=== PATIENT | male | born 1990 | race Caucasian/White ===

== ENCOUNTER 2018-05-10 19:21 | Emergency (ER) | payer SELFPAY ==
[2018-05-10 19:21] VITALS: BP 146/95; PULSE 111; RESP 18; TEMP 36.5; O2SAT 98; BMI 25.0
--- NOTE | 2018-05-10 19:59 | ED.VISSUMM ---
- ER Visit Summary Date of Service: 05/10/18 Chief Complaint: Anxiety and syncopal event History of Present Illness: The patient is a 27 M states is a history of PTSD, anxiety, depression and hep C. Patient was recently discharged from residential on 1019 due to a parole violation. States today he was in a heated argument ex girlfriend and he had a syncopal event. States he fell back and hit a table. Denies any headache. Denies any numbness to his arms or legs. Complaining of upper back discomfort. No chest or abdominal pain. He said syncopal events before. He denies any nausea, vomiting, diarrhea or fever. No melena. Physical Examination: Well-appearing young male. Vital signs stable afebrile. No distress. He is anxious. HEENT exam pupils round reactive light. No dental injury. No signs of trauma to his face or scalp. No hematomas or lacerations. C-spine normal range of motion. Nontender. Trachea nontender. Lungs clear to auscultation bilaterally. Heart regular rhythm rate about 100 no murmur. Chest nontender. Abdomen soft nontender. Normal bowel sounds no peritoneal signs. No signs of trauma. Pelvic girdle intact. Patient is moving all 4 extremities. They are neurovascularly intact. Equal symmetrical 5 out of 5 mat roller strength. Dorsi plantar flexion intact. Full range of motion both upper and lower extremities. Back is para thoracic soft tissue tenderness. No ecchymosis or bruising. No bony deformities. No significant bony tenderness. Neurologically is awake is alert. There are no focal motor or sensory deficits. GCS of 15. NIH is 0. Test Results: None Emergency Department Course and Treatment: Patient requested something for his anxiety I will give him a prescription for Ativan 1 mg #5 no refill. Given the primary care physician to follow-up with. Treatment Plan: Ice to his back contusions. Tylenol Motrin for pain. Disposition: Discharge Impression: Acute on chronic anxiety Acute syncopal event with history of the same Back contusion from fall This note was generated with [employer] dictation software. It may contain incorrect words, spelling, and punctuation that were not noted in review of the chart prior to signing ED Disposition - Plan for ED Patient: Chief Complaint: Fall Referrals: NOT,DEFINED [Primary Care Provider] -
--- NOTE | 2018-05-10 20:02 | ED.DCSUM_ITS ---
- ER Visit Summary Date of Service: 05/10/18 Chief Complaint: Anxiety and syncopal event History of Present Illness: The patient is a 27 M states is a history of PTSD, anxiety, depression and hep C. Patient was recently discharged from long-term on 1019 due to a parole violation. States today he was in a heated argument ex girlfriend and he had a syncopal event. States he fell back and hit a table. Denies any headache. Denies any numbness to his arms or legs. Complaining of upper back discomfort. No chest or abdominal pain. He said syncopal events before. He denies any nausea, vomiting, diarrhea or fever. No melena. Physical Examination: Well-appearing young male. Vital signs stable afebrile. No distress. He is anxious. HEENT exam pupils round reactive light. No dental injury. No signs of trauma to his face or scalp. No hematomas or lacerations. C-spine normal range of motion. Nontender. Trachea nontender. Lungs clear to auscultation bilaterally. Heart regular rhythm rate about 100 no murmur. Chest nontender. Abdomen soft nontender. Normal bowel sounds no peritoneal signs. No signs of trauma. Pelvic girdle intact. Patient is moving all 4 extremities. They are neurovascularly intact. Equal symmetrical 5 out of 5 guard lieutenant strength. Dorsi plantar flexion intact. Full range of motion both upper and lower extremities. Back is para thoracic soft tissue tenderness. No ecchymosis or bruising. No bony deformities. No significant bony tenderness. Neurologically is awake is alert. There are no focal motor or sensory deficits. GCS of 15. NIH is 0. Test Results: None Emergency Department Course and Treatment: Patient requested something for his anxiety I will give him a prescription for Ativan 1 mg #5 no refill. Given the primary care physician to follow-up with. Treatment Plan: Ice to his back contusions. Tylenol Motrin for pain. Disposition: Discharge Impression: Acute on chronic anxiety Acute syncopal event with history of the same Back contusion from fall This note was generated with [employer] dictation software. It may contain incorrect words, spelling, and punctuation that were not noted in review of the chart prior to signing ED Disposition - Plan for ED Patient: Chief Complaint: Fall Referrals: NOT,DEFINED [Primary Care Provider] -
--- NOTE | 2018-05-10 20:02 | ED.DEP ---
ED Disposition - Plan for ED Patient: Chief Complaint: Fall Instructions: ED Contusion Back, ED Panic Attack Prescriptions: Lorazepam [Ativan] 1 mg PO DAILY PRN PRN #5 tab PRN Reason: Anxiety Referrals: Counseling,Center [GROUP OF PHYSICIANS] - As soon as possible Maxwell Fields MD [STAFF PHYSICIAN] - As soon as possible Additional Instructions: Ice all sore areas. Tylenol Motrin for. Ativan as needed for anxiety. Also follow-up with a counseling center for your anxiety.
[2018-05-10 20:10] VITALS: BP 128/96; PULSE 109; RESP 17; O2SAT 94
== END 2018-05-10 20:11 | disposition home or self-care (01) ==
LOC: ED 20:09
PROVIDERS: Emergency Provider Emergency Medicine
DX: F41.9 Anxiety disorder, unspecified (principal); R55 Syncope and collapse; S20.229A Contusion of unspecified back wall of thorax, initial encounter; W19.XXXA Unspecified fall, initial encounter; Y93.89 Activity, other specified; F32.9 Major depressive disorder, single episode, unspecified; F43.10 Post-traumatic stress disorder, unspecified; B19.20 Unspecified viral hepatitis C without hepatic coma; F11.90 Opioid use, unspecified, uncomplicated; F15.90 Other stimulant use, unspecified, uncomplicated; Z72.0 Tobacco use
CPT/HCPCS: 99282

== ENCOUNTER 2018-05-16 22:20 | Emergency (ER) | payer SELFPAY ==
[2018-05-16 22:21] VITALS: BP 145/80; PULSE 104; RESP 18; TEMP 36.6; O2SAT 96; BMI 25.7
--- NOTE | 2018-05-16 22:42 | ED.VISSUMM ---
- ER Visit Summary Date of Service: 05/16/18 Chief Complaint: Suicide attempt History of Present Illness: The patient is a 27 M reports standing on a chair tonight and was in the process of tying a knot in a rope to hang himself and his cousin walked and stopped him. He admits to using meth the past couple of days. He has not been sleeping or eating well the past couple days. He does admit to prior suicide attempts and was last hospitalized last year. Patient was seen here a week ago after a fall and was given 5 tabs of Ativan as a prescription. He states his last dose was 3 or 4 days ago. He denies any other drug use other than meth. Physical Examination: Blood pressure is 145/80, temperature 97.9, heart rate 104, respiratory rate 18, pulse ox 96% on room air. Patient is sitting upright in bed. He is alert and talkative. Head neck examination reveals no external sign of trauma. There are no ligature rubi on his neck. Heart is regular rate and rhythm. Lung sounds clear. Abdomen is soft nontender. Active bowel sounds noted throughout. Neuro exam is normal. Psychiatric evaluation does reveal poor eye contact with poor judgment. He does admit to suicidal thoughts with plan. Test Results: CBC is unremarkable. Chemistry studies are significant only for potassium 3.1. LFTs normal. Tox screen is positive for amphetamines, methamphetamines, cannabinoids. EtOH is negative. Emergency Department Course and Treatment: Patient was given 40 mEq of potassium chloride orally. Patient was seen by Fernando Hendricks from the counseling center. Information was faxed to [facility] and we were notified that patient was declined secondary to insurance reasons. Treatment Plan: [] Disposition: Anticipated transfer Impression: Suicide gesture This note was generated with [employer] dictation software. It may contain incorrect words, spelling, and punctuation that were not noted in review of the chart prior to signing ED Disposition - Plan for ED Patient: Chief Complaint: Suicidal Referrals: Care Physician,No Primary [Primary Care Provider] -
[2018-05-16 23:02] LABS: Absolute Lymphocyte Count 2.63 X10^3/ul (0.83-4.51); Absolute Neutrophil Count 3.4 X10^3/uL (2.0-7.7); Basophil# 0.04 X10^3/uL; Basophil% 0.6 % (0-1); Eosinophil# 0.11 X10^3/uL; Eosinophils% 1.6 % (0-5); Hematocrit 41.9 % (40-54); Hemoglobin 14.5 g/dl (13.0-16.5); Lymphocyte # 2.63 X10^3/ul (4.0); Lymphocyte % 38.6 % (19-41); Mean Corp Hgb Conc 34.6 g/gl (32-36); Mean Corpuscular Volume 89.5 fL (80-94); Monocyte% 8.8 % (0-10); Neutrophil # 3.42 X10^3/uL (2.7-7.7); Neutrophil % 50.1 % (47-70); Platelet Count 241 K/mm3 (150-450); RBC Distribution Width CV 12.5 % (11.6-14.6); RBC Distribution Width SD 40.6 fl (35.1-43.9); Red Blood Count 4.68 M/mm3 (4.6-6.2); White Blood Count 6.8 K/mm3 (4.4-11.0)
[2018-05-16 23:04] LABS: Differential Indicated SCAN CRITERIA MET; POSITIVE COUNT NO; POSITIVE DIFFERENTIAL NO; POSITIVE MORPHOLOGY YES
[2018-05-16 23:09] LABS: BUN 17 mg/dL (7-18); Creatinine, Serum 0.99 mg/dL (0.70-1.30); Glucose 96 mg/dL (74-106)
[2018-05-16 23:10] LABS: AST(SGOT) 26 U/L (15-37); Alanine Aminotransfer ALT/SGPT 47 U/L (16-61); Albumin, Serum 4.1 g/dL (3.2-5.0); Alkaline Phosphatase 71 U/L (45-117); Anion Gap 7 (5-15); BUN/Creat Ratio 17.2 RATIO (10-20); Bilirubin, Direct 0.15 mg/dL (0.00-0.30); Calcium,Total 9.1 mg/dL (8.5-10.1); Chloride 103 mmol/L (98-107); EST Glomerular Filtration Rate 96 mL/min (>60); Est Glom Filt Rate - Afr Amer 116 mL/min (>60); Estimated Creatinine Clearance 125.54 ml/min; Globulin 3.7 g/dL (2.2-4.2); Potassium 3.1 mmol/L (3.5-5.1); Protein, Total 7.8 g/dL (6.4-8.2); Sodium Level 138 mmol/L (136-145)
[2018-05-16 23:20] LABS: Alcohol, Blood (Medical)-Serum < 3.0 mg/dL
[2018-05-16 23:21] LABS: Differential Comment SCANNED
[2018-05-16 23:24] VITALS: RESP 14
[2018-05-17] VITALS (10 sets, daily range): BP systolic 112–121; BP diastolic 70–71; PULSE 72–86; RESP 12–16; O2SAT 96–100
--- NOTE | 2018-05-17 00:48 | ED.RN ---
PATIENT ADVISED WAITING FOR URINE SAMPLE
[2018-05-17 01:57] LABS: Amphetamine Urine VISTA POSITIVE (<1000 ng/mL); Barbiturate Urine VISTA NEGATIVE (< 200 ng/mL); Benzodiazepine Urine VISTA NEGATIVE (< 200 ng/mL); Cocaine Urine VISTA NEGATIVE (< 300 ng/mL); Ecstacy Urine VISTA POSITIVE (< 500 ng/mL); Methadone Urine VISTA NEGATIVE (< 300 ng/mL); PCP Urine VISTA NEGATIVE (< 25 ng/mL); THC Urine VISTA POSITIVE (< 50 ng/mL); Vista UDS pH Range 5
--- NOTE | 2018-05-17 03:00 | ED.RN ---
Patient pending acceptance at [facility] at this time
--- NOTE | 2018-05-17 06:45 | ED.RN ---
april with crisis called and [facility] has denied patient at this time. April will have to find placement for patient at another facility at shift change
--- NOTE | 2018-05-17 07:34 | ED.RN ---
BREAKFAST TRAY DELIVERED TO PT. PT DENIES FURTHER NEEDS AT THIS TIME. AWAITING PLACEMENT TO ACCEPTED FACILITY. SITTER PRESENT AT BEDSIDE.
--- NOTE | 2018-05-17 09:56 | NURSING ---
FAXED EKG TO [facility].
--- NOTE | 2018-05-17 10:05 | EKG12_ITS ---
Test Reason : MK Blood Pressure : / mmHG Vent. Rate : 079 BPM Atrial Rate : 079 BPM P-R Int : 142 ms QRS Dur : 100 ms QT Int : 394 ms P-R-T Axes : 022 -08 067 degrees QTc Int : 451 ms Normal sinus rhythm Normal ECG Confirmed by LUIS TAYLOR MD ([id number]), graphics editor CHICHO ABRAHAM ([id number]) on 05/25/2018 1:14:17 PM Referred By: STEWART HERNANDES Confirmed By:LUIS TAYLOR MD
--- NOTE | 2018-05-17 11:53 | NURSING ---
CALLED COUNSELING CENTER, TALKED TO GURINDER. THEY HAVE FAXED INFO TO [facility] AND WAITING ON ACCEPTANCE.
--- NOTE | 2018-05-17 12:36 | ED.RN ---
[facility] CALLED WITH ACCEPTING DR AND BED. TRANSFERRED TO UNIT FOR NURSE REPORT. NURSE REPORT GIVEN BY THIS RN TO ABRAHAM FREEMAN. DENIES QUESTIONS. [employer] TO SET UP TRANSPORT.
== END 2018-05-17 15:00 ==
PROVIDERS: Emergency Provider Emergency Medicine
DX: T14.91XA Suicide attempt, initial encounter (principal); X83.8XXA Intentional self-harm by other specified means, initial encounter; Y93.89 Activity, other specified; F15.90 Other stimulant use, unspecified, uncomplicated; F12.90 Cannabis use, unspecified, uncomplicated; F41.9 Anxiety disorder, unspecified; B19.20 Unspecified viral hepatitis C without hepatic coma; Z91.5 Personal history of self-harm; Z72.0 Tobacco use
CPT/HCPCS: 36415; 80048; 80076; 80307; 80320; 85025; 93005; 99285; G0480

== ENCOUNTER → 2019-06-21 08:01 | Outpatient (CLI) | payer MEDICAID, SELFPAY ==
[2019-05-19 09:49] VITALS: BMI 26.9
[2019-06-21 12:40] LABS: Hematocrit 43.4 % (40-54); Hemoglobin 14.1 g/dL (13.0-16.5); Mean Corp Hgb Conc 32.5 g/dL (32-36); Mean Corpuscular Hgb 29.3 pg (27.0-32.0); Mean Platelet Vol. 10.2 fl (6.2-12.0); Platelet Count 209 K/mm3 (150-450); RBC Distribution Width CV 11.8 % (11.6-14.6); RBC Distribution Width SD 38.7 fl (35.1-43.9); Red Blood Count 4.82 M/mm3 (4.6-6.2); White Blood Count 4.1 K/mm3 (4.4-11.0)
[2019-06-21 13:15] LABS: ALB/GLOB Ratio 1.1 RATIO (0.9-2.4); AST(SGOT) 27 U/L (15-37); Alanine Aminotransfer ALT/SGPT 39 U/L (16-61); Albumin, Serum 3.9 g/dL (3.2-5.0); Alkaline Phosphatase 76 U/L (45-117); Anion Gap 7 (5-15); BUN 15 mg/dL (7-18); BUN/Creat Ratio 17.3 RATIO (10-20); Chloride 108 mmol/L (98-107); Cholesterol 163 mg/dL (200); Creatinine, Serum 0.87 mg/dL (0.70-1.30); EST Glomerular Filtration Rate 110 mL/min (>60); Est Glom Filt Rate - Afr Amer 133 mL/min (>60); Globulin 3.4 g/dL (2.2-4.2); Glucose 80 mg/dL (74-106); High Density Lipoprotein 30 mg/dL; Protein, Total 7.3 g/dL (6.4-8.2); Sodium Level 141 mmol/L (136-145); Thyroid Stim Hormone (TSH) 3.58 uIU/mL (0.358-3.74); Triglycerides 127 mg/dL; Very Low Density Lipoprotein 25 mg/dL (5-40)
[2019-06-23 15:38] LABS: Hepatitis Be Ab Negative (Negative)
== END ==
PROVIDERS: PCP Internal Medicine; Visit Provider Nurse Practitioner Family
DX: B19.20 Unspecified viral hepatitis C without hepatic coma (principal); F10.10 Alcohol abuse, uncomplicated; F19.10 Other psychoactive substance abuse, uncomplicated
CPT/HCPCS: 36415; 80053; 80061; 84443; 85027; 86707

== ENCOUNTER 2020-01-26 15:09 | Emergency (ER) | payer OTHER, SELFPAY ==
[2019-06-21 08:16] VITALS: BMI 26.9
[2020-01-26 15:11] VITALS: BP 118/69; PULSE 94; RESP 18; TEMP 36.2; O2SAT 97; BMI 22.4
[2020-01-26 15:15] VITALS: BP 118/69; PULSE 94; RESP 16; TEMP 36.2; O2SAT 97
[2020-01-26 15:49] LABS: Squamous Epithelial Cells - UA 0 SEEN /hpf (0-5)
--- NOTE | 2020-01-26 15:50 | ED.VIS.GEN ---
History of Present Illness Chief Complaint: Cellulitis Informant: Patient Narrative: Patient is a 29-year-old previous healthy male who presents to the emergency department for left hand palm swelling, pain and erythema. He states that he had a cut on it 2 days prior. Just today is became very painful. He has not tried taking thing for it. He did have a scab that he picked off over top of it. He did have a clear discharge. He denies any IV drug abuse but has had previous substance abuse. States that it has been over 9-month since he last used anything. He does smoke cigarettes. Moving the hand makes his symptoms worse. No streaking up the arm. He denies any fevers or chills. No nausea or vomiting. Denies any chest pain or shortness of breath. Patient also concerned about STD. He does have a history of gonorrhea in the past. He had a new sexual partner a few weeks ago. Yesterday started to have burning with urination. Denies any discharge. No external lesions. Past Medical History - Allergies and Home Meds Allergies/Adverse Reactions: Allergies ibuprofen Allergy (Verified 01/26/20 15:11) Hives orphenadrine citrate [From Norflex] Allergy (Verified 01/26/20 15:11) Hives Primary Care Physician: Ian Sanchez NP-C [Primary Care Provider] - Prior records reviewed: Yes Past Medical History: None Surgical History: tonsillectomy, - Smoking Status: Current every day smoker Alcohol: None Drugs: - - Former drug abuser - Family History Maternal Family History: Family History (Last Reviewed 05/19/19 @ 09:48 by Marium Paul) Unknown Alcoholism Suicide attempt Anxiety Arthritis Breast cancer Cancer Depression Myocardial infarction Kidney disease Seizures Family History: Reports: No pertinent history Paternal Family History: Family History (Last Reviewed 05/19/19 @ 09:48 by Marium Paul) Unknown Alcoholism Suicide attempt Anxiety Arthritis Breast cancer Cancer Depression Myocardial infarction Kidney disease Seizures Family History: Reports: No pertinent history Review of Systems All systems negative except as indicated General: Denies: Chills, Fever, Sweats Eyes: Denies: Visual changes - bilaterally, Diplopia ENT: Denies: Rhinorrhea, Sore throat Cardiovascular: Denies: Chest pain, Palpitations Respiratory: Denies: Dyspnea, Cough, Dyspnea on exertion Gastrointestinal: Denies: Abdominal pain, Nausea, Vomiting, Diarrhea Genitourinary: Reports: Dysuria. Denies: Hematuria, Frequency Musculoskeletal: Denies: Back pain, Extremity Pain Skin: Reports: - - Erythema and swelling over left palm around thenar eminence. Denies: Rash, Wounds Neurological: Denies: Headache, Weakness, Numbness Physical Exam Vital Signs/Narrative: Vital Signs Temp Pulse Resp BP Pulse Ox 01/26/20 15:15 97.1 F L 94 16 118/69 97 01/26/20 15:11 97.1 F L 94 18 118/69 97 Inital Vital Signs reviewed: Yes General: Well nourished, Well developed, No Acute Distress Head: Normocephalic, Atraumatic Eyes: Perrl, EOMI ENT: Moist mucous membranes, No rhinorrhea Neck: Supple, Nontender Cardiovascular: Regular rate, Regular rhythm, No murmurs Respiratory: No distress, CTA bilaterally, Chest nontender Abdomen: Soft, Nontender, Nondistended Rectal: Deferred : - - Deferred Back: Nontender, Normal Inspection Extremities: Nontender, No edema Skin: No rash, - - Left thenar eminence has swelling, warmth and tenderness. No fluctuating abscess present. There is a small open area with no drainage. No streaking up the arm. Good active range of motion of digits and wrist. 2+ radial pulse. Neurological: Alert, Oriented x3, Cranial nerves II-XII grossly intact, Normal Strength, Normal Sensation Psychological: Normal affect, Normal Mood Diagnostic/Tx/Re-eval - Medical Decision Making Patient presents the emerge department for what appears to be cellulitis of the left thenar eminence. Will cover with antibiotics. He is also concerned about STD and gonorrhea/chlamydia test being obtained. Will treat symptomatically with azithromycin and Rocephin. Given the location of his cellulitis I do recommend he has very close follow-up with his PCP. He is to call on Wednesday morning for an appointment. He otherwise has no systemic symptoms. If he develops any fever/chills or streaking up the arm despite being on antibiotic he is to return to the emerge department immediately. He understands and is agreeable with this plan. Patient does not know of any history of MRSA but states he has had abscesses before in the past. We will also cover with Bactrim given his history with Keflex. ED Disposition - Plan for ED Patient: Disposition: Home or Assisted Living Diagnosis: Cellulitis of hand, Dysuria Instructions: Cellulitis, If You Think You Have an STD Prescriptions: Sulfamethoxazole/Trimethoprim [Bactrim Ds Tablet] 2 each PO BID 7 Days #28 tablet Cephalexin [Keflex] 500 mg PO TID 7 Days #21 capsule Referrals: Ian Sanchez, EMILY-C [Primary Care Provider] - 2 Days for wound check
[2020-01-26 15:59] LABS: Color, Urine Yellow (Yellow); Glucose, Dipstick Normal (Normal); Ketone-Dipstick 5 mg/dl (Negative); Leukocyte Esterase-Dipstick Negative /ul (Negative); Nitrite-Dipstick Negative (Negative); Occult Blood-Urine Negative /ul (Negative); Protein-Dipstick 30 mg/dl (Negative); Specific Gravity, Urine 1.025 (1.002-1.030); Urine Bilirubin Dipstick Negative (Negative); Urine Clarity Sl. Cloudy (Clear); Urine Urobilinogen 4 mg/dl (Normal)
[2020-01-26] MEDS: Ceftriaxone 500 MG Vial 250 MG IM (16:13)
[2020-01-26] MEDS: Azithromycin 250 MG Tablet 1000 MG PO (16:13)
[2020-01-26 16:26] LABS: Bacteria 1+ /hpf (None Seen); Mucous, Urine 3+ /hpf (<or=2+); Red Blood Cells-Urine 0-5 SEEN /hpf (0-5); White Blood Cells 5-10 SEEN /hpf (0-5)
[2020-01-26 17:29] LABS: Chlamydia Trachomatis by PCR Negative (Negative); Neisserai gonorrhoeae by PCR Negative (Negative); Probe Check PASS; Sample Adequacy Control PASS; Specimen Processing Control PASS
== END 2020-01-26 16:36 | disposition home or self-care (01) ==
PROVIDERS: Emergency Provider Emergency Medicine; PCP Nurse Practitioner Family
DX: L03.114 Cellulitis of left upper limb (principal); R30.0 Dysuria; F17.210 Nicotine dependence, cigarettes, uncomplicated
CPT/HCPCS: 81001; 87491; 87591; 96372; 99281

== ENCOUNTER 2020-01-29 19:52 | Emergency (ER) | payer OTHER, SELFPAY ==
[2020-01-29 19:54] VITALS: BP 123/85; PULSE 92; RESP 16; TEMP 36.9; O2SAT 100; BMI 20.8
[2020-01-29 20:02] VITALS: BP 124/84; PULSE 87; RESP 16; TEMP 36.9; O2SAT 99
--- NOTE | 2020-01-29 20:36 | ED.VIS.GEN ---
History of Present Illness Chief Complaint: General Illness Informant: Patient Onset: Today Narrative: 29-year-old male with history of drug abuse presents with concern that his head is hurting and he feels confused. He has nausea but not vomiting. He states he has not done any drugs today. Denies fever. He does also state that he has a history of migraines but they are not formally diagnosed but he does have to come to the hospital and have these treated sometimes. Past Medical History - Allergies and Home Meds Allergies/Adverse Reactions: Allergies ibuprofen Allergy (Verified 01/29/20 19:56) Hives orphenadrine citrate [From Norflex] Allergy (Verified 01/29/20 19:56) Hives Primary Care Physician: Ian Sanchez NP-C [Primary Care Provider] - Prior records reviewed: Yes Surgical History: tonsillectomy, - Smoking Status: Current every day smoker - Family History Maternal Family History: Family History (Last Reviewed 05/19/19 @ 09:48 by Marium Paul) Unknown Alcoholism Suicide attempt Anxiety Arthritis Breast cancer Cancer Depression Myocardial infarction Kidney disease Seizures Family History: Reports: No pertinent history Paternal Family History: Family History (Last Reviewed 05/19/19 @ 09:48 by Marium Paul) Unknown Alcoholism Suicide attempt Anxiety Arthritis Breast cancer Cancer Depression Myocardial infarction Kidney disease Seizures Family History: Reports: No pertinent history Review of Systems General: Denies: Chills, Fever Eyes: Denies: Visual changes - bilaterally, Diplopia ENT: Denies: Rhinorrhea, Sore throat Cardiovascular: Denies: Chest pain, Palpitations Respiratory: Denies: Dyspnea, Cough, Dyspnea on exertion Gastrointestinal: Reports: Nausea, Vomiting Genitourinary: Reports: Dysuria Musculoskeletal: Denies: Myalgias Skin: Denies: Rash Neurological: Reports: Headache Psych: Denies: Depression, Anxiety Physical Exam Vital Signs/Narrative: Vital Signs Temp Pulse Resp BP Pulse Ox 01/29/20 20:02 98.5 F 87 16 124/84 H 99 01/29/20 19:54 98.5 F 92 16 123/85 H 100 Inital Vital Signs reviewed: Yes General: Well nourished, Well developed, No Acute Distress Head: Normocephalic, Atraumatic Eyes: Perrl, EOMI ENT: Moist mucous membranes Neck: Supple Cardiovascular: Regular rate, Regular rhythm Respiratory: No distress, CTA bilaterally Skin: Normal color, No rash Neurological: Alert, Oriented x3, Cranial nerves II-XII grossly intact Psychological: Normal affect Diagnostic/Tx/Re-eval - Medical Decision Making Laboratory Data 01/29/20 01/29/20 01/29/20 21:05 21:05 21:05 Urine Color Yellow Urine Clarity Cloudy Urine pH 6.5 Ur Specific Sayre 1.015 Urine Protein Negative Urine Glucose (UA) Normal Urine Ketones Negative Urine Occult Blood 10 H Urine Nitrite Negative Urine Bilirubin Negative Urine Urobilinogen 1 H Ur Leukocyte Esterase 25 H Urine RBC 0-5 SEEN Urine WBC 5-10 SEEN Ur Squamous Epith Cells 0 SEEN Amorphous Sediment 1+ Urine Bacteria RARE Urine Mucus 0 SEEN Urine Opiates Screen NEGATIVE Urine Methadone Screen NEGATIVE Ur Barbiturates Screen NEGATIVE Ur Phencyclidine Scrn NEGATIVE Ur Amphetamines Screen POSITIVE H U Methamphetamin-MDMA POSITIVE H U Benzodiazepines Scrn NEGATIVE Urine Cocaine Screen NEGATIVE U Cannabinoids Screen POSITIVE H Ur Drug Screen Comment Chlam trachomat DNA PCR Cancelled N.gonorrhoeae DNA (PCR) Cancelled 01/29/20 21:05 Urine Color Urine Clarity Urine pH Ur Specific Sayre Urine Protein Urine Glucose (UA) Urine Ketones Urine Occult Blood Urine Nitrite Urine Bilirubin Urine Urobilinogen Ur Leukocyte Esterase Urine RBC Urine WBC Ur Squamous Epith Cells Amorphous Sediment Urine Bacteria Urine Mucus Urine Opiates Screen Urine Methadone Screen Ur Barbiturates Screen Ur Phencyclidine Scrn Ur Amphetamines Screen U Methamphetamin-MDMA U Benzodiazepines Scrn Urine Cocaine Screen U Cannabinoids Screen Ur Drug Screen Comment Chlam trachomat DNA PCR Negative N.gonorrhoeae DNA (PCR) Negative Patient presents for multiple symptoms. I treated his headache with Reglan and Benadryl. He also stated at some point that he had dysuria and I checked his urine he does not have a UTI. He states he previously had an STD but was treated for this. Patient's urine drug screen is positive for methamphetamine and marijuana. He does feel improved however. I will send him home to follow-up outpatient. He is counseled on discontinuing drug use. Is the most likely cause of his symptoms. He Acknowledged understanding. Impression 1. Methamphetamine abuse 2. Marijuana abuse 3. Headache 4. Dysuria ED Disposition - Plan for ED Patient: Disposition: Home or Assisted Living Diagnosis: Methamphetamine abuse Instructions: ED AMPHETAMINE ABUSE, ED Abuse Drug Narcotic Sedative Rx Referrals: Ian Sanchez, NATIONAL ACCOUNTS RECRUITER-C [Primary Care Provider] -
[2020-01-29] MEDS: 0.9% Normal Saline 1,000 ML 999 ML IV (20:46)
[2020-01-29] MEDS: Metoclopramide 10 MG/2 ML Vial IV (20:46)
[2020-01-29] MEDS: DiphenhydrAMINE 50 MG/ML Syringe 25 MG IV (20:46)
[2020-01-29 21:13] LABS: Mucous, Urine 0 SEEN /hpf (<or=2+); Squamous Epithelial Cells - UA 0 SEEN /hpf (0-5)
[2020-01-29 21:17] LABS: Color, Urine Yellow (Yellow); Glucose, Dipstick Normal (Normal); Ketone-Dipstick Negative (Negative); Leukocyte Esterase-Dipstick 25 /ul (Negative); Nitrite-Dipstick Negative (Negative); Occult Blood-Urine 10 /ul (Negative); Protein-Dipstick Negative (Negative); Specific Gravity, Urine 1.015 (1.002-1.030); Urine Bilirubin Dipstick Negative (Negative); Urine Clarity Cloudy (Clear); Urine Urobilinogen 1 mg/dl (Normal); Urine pH 6.5 (5.0 - 8.0)
[2020-01-29 21:26] LABS: Amorphous Sediment 1+; Amphetamine Urine VISTA POSITIVE (<1000 ng/mL); Bacteria RARE /hpf (None Seen); Barbiturate Urine VISTA NEGATIVE (< 200 ng/mL); Benzodiazepine Urine VISTA NEGATIVE (< 200 ng/mL); Cocaine Urine VISTA NEGATIVE (< 300 ng/mL); Ecstacy Urine VISTA POSITIVE (< 500 ng/mL); Methadone Urine VISTA NEGATIVE (< 300 ng/mL); PCP Urine VISTA NEGATIVE (< 25 ng/mL); Red Blood Cells-Urine 0-5 SEEN /hpf (0-5); THC Urine VISTA POSITIVE (< 50 ng/mL); Vista UDS pH Range 6; White Blood Cells 5-10 SEEN /hpf (0-5)
[2020-01-29 21:56] VITALS: BP 113/72; PULSE 77; RESP 19; O2SAT 100
[2020-01-29 23:05] LABS: Chlamydia Trachomatis by PCR Negative (Negative); Neisserai gonorrhoeae by PCR Negative (Negative); Probe Check PASS; Sample Adequacy Control PASS; Specimen Processing Control PASS
== END 2020-01-29 22:00 | disposition home or self-care (01) ==
PROVIDERS: Emergency Provider Student in an Organized Health Care Education/Training Program; PCP Nurse Practitioner Family
DX: F15.10 Other stimulant abuse, uncomplicated (principal); F12.10 Cannabis abuse, uncomplicated; R51 Headache; R30.0 Dysuria; F17.200 Nicotine dependence, unspecified, uncomplicated
CPT/HCPCS: 80307; 81001; 87491; 87591; 96374; 96375; 99283; J7030; A4216

== ENCOUNTER 2020-04-14 15:44 | Inpatient (IN) | payer SELFPAY ==
[2020-04-14 15:45] VITALS: BP 129/93; PULSE 91; RESP 20; TEMP 36.7; O2SAT 100; BMI 21.2
--- NOTE | 2020-04-14 15:55 | ED.VISSUMM ---
- ER Visit Summary Date of Service: 04/14/20 Chief Complaint: Request for detox from heroin [] History of Present Illness: The patient is a 29 M [does the emergency department requesting detox from heroin today. Patient states that he is been using for over a year daily. He last used about 12 hours ago. Patient states that he accidentally overdosed yesterday and somebody had to give him Narcan and brought him back. Patient denies any chest or abdomen pain. He denies any fevers or recent illness. Patient last went through detox about a year ago.] Physical Examination: [HEENT-PERRLA, EOMI. Cranial nerves II through XII grossly intact. TMs clear. Mucous membranes moist. No adenopathy. Cardiovascular-regular rate and rhythm without murmur or ectopy Lungs-clear to auscultation, chest wall stable without crepitus or subcu emphysema Abdomen-normoactive bowel sounds, soft, nontender, no rebound or rigidity, no peritoneal signs. Extremities-intact ?4, normal range of motion, normal pulses, atraumatic. Patient has multiple track rubi on the upper extremities.] Test Results: [CBC, CMP, alcohol, and urine tox screen ordered and pending.] Emergency Department Course and Treatment: [Patient had an IV line established. Patient was given Zofran 4 mg IV.] Treatment Plan: [Case was discussed with hospitalist who will evaluate patient for admission] Disposition: [Admit] Impression: [Opiate withdrawal Request for opiate detox] This note was generated with [employer] dictation software. It may contain incorrect words, spelling, and punctuation that were not noted in review of the chart prior to signing ED Disposition - Plan for ED Patient: Referrals: Ian Sanchez NP, SURVEILLANCE SYSTEMS ENGINEER-C [Primary Care Provider] -
--- NOTE | 2020-04-14 16:12 | NURSING ---
MED SURG WHITE OPIATE WITHDRAWAL , OPIATE DETOX
--- NOTE | 2020-04-14 16:18 | PCM.HP.STD ---
Problem List (1) Suicide attempt Status: Resolved Comment: OD (2) Seizures Status: Resolved Comment: d/t opiod withdraw 2015 (3) Kidney stones Status: Chronic (4) Drug abuse Status: Chronic (5) Alcohol abuse Status: Chronic (6) Hepatitis C Status: Chronic (7) Asthma Status: Chronic (8) Antihistamines overdose Status: Resolved (9) Ventricular ectopy Status: Resolved (10) Sinus tachycardia Status: Resolved History of Present Illness Date of Admission: 04/14/20 Chief Complaint: Requesting heroin detox. The patient is a 29 year old M who presents to the emergency room due to request for heroin detox. Patient reports using IV heroin approximately 1 g daily over the past year. He last used 12 hours ago. He states he accidentally overdosed yesterday and his friend brought him back with 3 doses of Narcan. Patient is very emotional during HPI. States he is been very depressed. He reports a history of suicide attempt. Denies current suicidal ideations. Reports yesterday's overdose was an accident. Currently complains of anxiety and dizziness/lightheadedness. Denies other current withdrawal symptoms. He admits to using occasional methamphetamine, benzodiazepines, marijuana. He reports he drinks every few days, 3-4 drinks. Patient states he was in detox followed by residential treatment in the past and maintained sobriety for period of time. He is hoping to return to residential treatment following current detox. He has a past medical history of anxiety, depression with suicide attempt, chronic hepatitis C, tobacco dependence, history of seizures related to opioid withdrawal, alcohol abuse. Past Medical History Past Medical History (Chronic Problems): Chronic Problems (Last Reviewed 05/19/19 @ 09:48 by Marium Paul) Kidney stones (Chronic) Drug abuse (Chronic) Alcohol abuse (Chronic) Hepatitis C (Chronic) Asthma (Chronic) Medical History: Medical History (Last Reviewed 05/19/19 @ 09:48 by Marium Paul) Suicide attempt (Resolved) T14.91XA OD Seizures (Resolved) R56.9 d/t opiod withdraw 2015 Kidney stones (Chronic) N20.0 Drug abuse (Chronic) F19.10 Alcohol abuse (Chronic) F10.10 Hepatitis C (Chronic) B19.20 Asthma (Chronic) J45.909 Allergies ibuprofen Allergy (Verified 04/14/20 15:46) Hives orphenadrine citrate [From Norflex] Allergy (Verified 04/14/20 15:46) Hives Home Medications: Ambulatory Orders Medication Instructions Recorded NK 04/14/20 Surgical History: Surgical History (Last Reviewed 05/19/19 @ 09:48 by Marium Paul) H/O nephrolithotomy with removal of calculi Z98.890, Z87.442 History of hand surgery Z98.890 Rt hand fracture with screws Surgical History: tonsillectomy, - - Right hand surgery following football injury Psychiatric History: Depression Lives: Homeless Smoking Status: Current every day smoker Tobacco Use: Cigarettes - Half pack per day Alcohol: Heavy Drugs: Heroin, Marijuana, - - Benzodiazepines, methamphetamine - *Family History Maternal Family History: Family History (Last Reviewed 05/19/19 @ 09:48 by Marium Paul) Unknown Alcoholism Suicide attempt Anxiety Arthritis Breast cancer Cancer Depression Myocardial infarction Kidney disease Seizures History Items: - - Denies known maternal medical history including cardiac history. Paternal Family History: Family History (Last Reviewed 05/19/19 @ 09:48 by Marium Paul) Unknown Alcoholism Suicide attempt Anxiety Arthritis Breast cancer Cancer Depression Myocardial infarction Kidney disease Seizures History Items: - - Denies known paternal medical history including cardiac history. Review of Systems Constitutional: Denies: Chills, Fever, Weight Change HEENT: Denies: Head Aches, Sinus Congestion, Sinus Drainage Cardiovascular: Reports: Light Headedness. Denies: Chest Pain, Palpitations Respiratory: Denies: Cough, Shortness of breath at rest, Sputum production Gastrointestinal: Denies: Abdominal Pain, Nausea, Vomiting Genitourinary: Denies: Dysuria Musculoskeletal: Denies: Joint Pain, Joint Tenderness Skin: Denies: Rash, Wounds Neurological: Denies: Numbness, Tingling, Focal weakness Psychiatric: Reports: Anxiety, Depression Hematologic/ Lymphatic: Denies: Easy Bruising, Easy Bleeding VTE Information - Inpt Only VTE Present on Admission: No VTE Mechan Device Prophylaxis: None VTE Pharm Prophylaxis ordered?: No Reason prophylaxis not ordered:: Treatment Not Indicated - Physical Exam Vitals/I&O's: Vital Signs Temp Pulse Resp BP Pulse Ox 98.0 F 91 20 H 129/93 H 100 04/14/20 15:45 04/14/20 15:45 04/14/20 15:45 04/14/20 15:45 04/14/20 15:45 Oxygen Delivery Method Room Air Weight: 161 lb 6.054 oz Body Mass Index (BMI) 21.2 General: Alert, Oriented x3, Cooperative, - - Tearful, emotionally distressed HEENT: Atraumatic, PERRLA, EOMI, Normocephalic Oral: Dry Mucosa Neck: Supple, No JVD, Negative Carotid Bruits Lungs: Clear to auscultation, Normal air movement Cardiovascular: Regular rate, No murmurs Abdomen: Bowel Sounds Present, Soft, Non Tender, Non-Distended Extremities: No clubbing, No cyanosis, No edema, Capillary Refill Less than 3 Seconds Skin: No rashes, No breakdown Musculoskeletal: No Tenderness to Palpation of Joints or Extremities Neurological: Cranial nerves II-XII grossly intact, Neuro grossly intact Psych/Mental Status: Anxious, Depressed Current Medications Sodium Chloride () 1,000 mls @ 150 mls/hr IV .Q6H40M [facility] Assessment/Plan All Active Problems (Last Reviewed 05/19/19 @ 09:48 by Marium Paul) Suicide attempt (Resolved) Seizures (Resolved) Antihistamines overdose (Resolved) Sinus tachycardia (Resolved) Ventricular ectopy (Resolved) 1. Acute opioid withdrawal-buprenorphine taper. PRN regimen for somatic complaints. CINA protocol. [facility] consult. Tox screen and hepatitis panel pending. 2. Polysubstance abuse/alcohol dependence-patient admits to benzodiazepine, methamphetamine, marijuana use in addition to heroin. Obtain tox screen. EtOH level pending. 3. Anxiety/depression/PTSD/history of suicide attempt-feel patient should be evaluated by crisis due to severe depression. Patient agreeable to initiating regimen. 4. Chronic hepatitis C-outpatient follow-up once 6 months clean. 5. Tobacco dependence-encouraged cessation. Nicotine replacement patch. 6. History of seizures related to opioid withdrawal-seizure precautions. DVT prophylaxis-not indicated, early ambulation This patient was seen by ROBERTA Beauchamp under the supervision of Dr. Contreras.
[2020-04-14 16:25] VITALS: BP 123/87; PULSE 88; RESP 16; TEMP 36.7
[2020-04-14 16:39] LABS: Absolute Lymphocyte Count 1.92 X10^3/uL (0.83-4.51); Absolute Neutrophil Count 3.5 X10^3/uL (2.0-7.7); Basophil# 0.01 X10^3/uL; Basophil% 0.2 % (0-1); Eosinophil# 0.18 X10^3/uL; Eosinophils% 3.1 % (0-5); Hematocrit 41.1 % (40-54); Hemoglobin 13.6 g/dL (13.0-16.5); Lymphocyte # 1.92 X10^3/ul (4.0); Lymphocyte % 32.7 % (19-41); Mean Corp Hgb Conc 33.1 g/dL (32-36); Mean Corpuscular Hgb 30.1 pg (27.0-32.0); Mean Corpuscular Volume 90.9 fL (80-94); Mean Platelet Vol. 10.2 fl (6.2-12.0); Monocyte# 0.29 X10^3/uL; Monocyte% 4.9 % (0-10); NRBC Flagged by Analyzer 0 % (0-5); Neutrophil # 3.45 X10^3/uL (2.7-7.7); Neutrophil % 58.8 % (47-70); Platelet Count 179 K/mm3 (150-450); RBC Distribution Width CV 12.1 % (11.6-14.6); RBC Distribution Width SD 39.8 fl (35.1-43.9); Red Blood Count 4.52 M/mm3 (4.6-6.2); White Blood Count 5.9 K/mm3 (4.4-11.0)
[2020-04-14 16:53] LABS: Amphetamine Urine VISTA POSITIVE (<1000 ng/mL); Barbiturate Urine VISTA NEGATIVE (< 200 ng/mL); Benzodiazepine Urine VISTA NEGATIVE (< 200 ng/mL); Cocaine Urine VISTA NEGATIVE (< 300 ng/mL); Ecstacy Urine VISTA POSITIVE (< 500 ng/mL); Methadone Urine VISTA NEGATIVE (< 300 ng/mL); PCP Urine VISTA NEGATIVE (< 25 ng/mL); THC Urine VISTA POSITIVE (< 50 ng/mL); Vista UDS pH Range 6
[2020-04-14] MEDS: Ondansetron ODT 4 MG Tablet PO (16:59)
[2020-04-14 17:25] VITALS: BMI 21.2; BMI 21.3
[2020-04-14 17:53] VITALS: BP 125/76; PULSE 84; RESP 16; TEMP 36.9; O2SAT 100
[2020-04-14] MEDS: hydrOXYzine PAM 25 MG Capsule 50 MG PO (17:58)
[2020-04-14] MEDS: Methocarbamol 750 MG Tablet 1500 MG PO (17:58)
[2020-04-14 18:33] LABS: ALB/GLOB Ratio 0.9 RATIO (0.9-2.4); AST(SGOT) 33 U/L (15-37); Alanine Aminotransfer ALT/SGPT 87 U/L (16-61); Albumin, Serum 3.3 g/dL (3.2-5.0); Alkaline Phosphatase 94 U/L (45-117); Anion Gap 5 (5-15); BUN 8 mg/dL (7-18); BUN/Creat Ratio 9.6 RATIO (10-20); Calcium,Total 8.6 mg/dL (8.5-10.1); Chloride 104 mmol/L (98-107); Creatinine, Serum 0.83 mg/dL (0.70-1.30); EST Glomerular Filtration Rate 115 mL/min (>60); Est Glom Filt Rate - Afr Amer 139 mL/min (>60); Estimated Creatinine Clearance 134.74 ml/min; Globulin 3.6 g/dL (2.2-4.2); Glucose 112 mg/dL (74-106); Potassium 3.5 mmol/L (3.5-5.1); Protein, Total 6.9 g/dL (6.4-8.2); Sodium Level 137 mmol/L (136-145)
[2020-04-14] MEDS: Buprenorphine HCl 2 MG TAB.SUBL SL (18:33)
[2020-04-14 18:59] LABS: Alcohol, Blood (Medical)-Serum < 3.0 mg/dL
[2020-04-14 19:33] LABS: HIV - WCH Non-Reactive (Nonreactive)
[2020-04-14 21:30] VITALS: BP 112/68; PULSE 84; RESP 16; TEMP 36.8; O2SAT 100
[2020-04-14] MEDS: Dicyclomine 10 MG Capsule 20 MG PO (21:38)
[2020-04-14] MEDS: Gabapentin 300 MG Capsule PO (21:38)
[2020-04-14] MEDS: busPIRone 5 MG Tablet 10 MG PO (21:38)
[2020-04-15 01:32] VITALS: BP 101/64; PULSE 76; RESP 16; TEMP 36.8; O2SAT 99
[2020-04-15] MEDS: Buprenorphine HCl 2 MG TAB.SUBL SL ×3 (01:39→18:03)
[2020-04-15] MEDS: hydrOXYzine PAM 25 MG Capsule 50 MG PO (01:40)
[2020-04-15] MEDS: Methocarbamol 750 MG Tablet 1500 MG PO (01:40)
[2020-04-15 05:22] VITALS: BP 107/68; PULSE 63; RESP 16; TEMP 36.7; O2SAT 98
[2020-04-15] MEDS: Dicyclomine 10 MG Capsule 20 MG PO (06:49)
[2020-04-15] MEDS: cloNIDine HCl 0.1 MG Tablet PO (06:49)
[2020-04-15] MEDS: busPIRone 5 MG Tablet 10 MG PO ×2 (09:17→22:00)
--- NOTE | 2020-04-15 09:30 | CASEMGMT ---
Addendum entered by Mallika Dotson 04/15/20 13:02: Pt is listed as being self-pay. SW in to speak with pt. SW introduced self and role at [facility]. Pt sleeping but did wake up when this worker entered the room but didn't open his eyes. Pt confirms that he doesn't have insurance. SW provided pt with financial resources including medicaid application, [employer], [employer], [facility], [facility], Prescription Home and Rx assistance programs. Pt denied additional needs or concerns at this time. Original Note: Social Work Note Pt is RAMP pt. SW placed a call to Herminio at [facility] and left message that pt will need to be seen. Mallika Dotson SUPERVISOR TRAVEL TRAILER, FENCE MAKER
[2020-04-15] MEDS: Gabapentin 300 MG Capsule PO ×2 (10:19→22:00)
--- NOTE | 2020-04-15 11:22 | PCM.NTREPORT ---
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 He usually eats one meal per day and snacks in between prn when not on drugs - while on drugs, po intake is poor. UBW: 93.18 kg - wt loss of 21.5% x 2 mo (significant for malnutrition). Pt eating well on MS3 - good intake of breakfast and eating snack while in room talking to him. Does not want additional ONS as has food here. [ End ] - Nutrition Diagnosis Problem / Etiology / Signs & Symptoms (PES):: Pt with suboptimal po intake d/t drug use and homeless AEB 21.5% wt loss x 2 mo, fat/muscle loss and decreased po intake. Evidence of Malnutrition Exists:: Yes Moderate PCM:: Social & Environmental circumstances - Nutrition Intervention Nutrition Prescription:: [id number] harlan / 70-80 gm pro / day - Food / Nutrient Delivery Interventions Summary of nutrition intervention:: Continue regular diet w/ ONS at medpass. Nutrition support ordered as / adjusted to:: Will add snacks tid between meals to diet order. Nutrition education provided?: No - MNT Monitoring Further MNT monitoring and evaluation required?: Yes MNT Follow-up in:: 3-5 days - please call RD/LD at x [phone] if questions
[2020-04-15 11:25] VITALS: BMI 21.2
--- NOTE | 2020-04-15 13:21 | PCM.PROGNOTE ---
<Barbara Godinez GANG SAW OPERATOR - Last Filed: 04/15/20 13:26> Subjective: Patient seen and examined. Complains of general malaise. Reports diaphoresis, anxiety, abdominal cramping, nausea. [employer] consult pending. - Physical Exam Vitals/I&O's: Vital Signs Temp Pulse Resp BP Pulse Ox 98.1 F 63 16 107/68 98 04/15/20 05:22 04/15/20 05:22 04/15/20 05:22 04/15/20 05:22 04/15/20 05:22 Oxygen Delivery Method Room Air Weight: 161 lb 6.054 oz Body Mass Index (BMI) 21.2 Intake and Output for Last 24 Hours 04/13/20 04/14/20 04/15/20 23:59 23:59 23:59 Intake Total 250 / 250 Balance 250 / 250 General: Alert, Oriented x3, Cooperative HEENT: Atraumatic, PERRLA, EOMI, Normocephalic Neck: Supple, No JVD, Negative Carotid Bruits Lungs: Clear to auscultation, Normal air movement Cardiovascular: Regular rate, No murmurs Abdomen: Bowel Sounds Present, Soft, Non Tender Extremities: No clubbing, No cyanosis, No edema, Capillary Refill Less than 3 Seconds Skin: No rashes, No breakdown Musculoskeletal: No Tenderness to Palpation of Joints or Extremities Neurological: Cranial nerves II-XII grossly intact, Neuro grossly intact Psych/Mental Status: Anxious Laboratory Results 04/14/20 16:20: WBC 5.9, RBC 4.52 L, Hgb 13.6, Hct 41.1, MCV 90.9, MCH 30.1, MCHC 33.1, RDW Std Deviation 39.8, RDW Coeff of Macey 12.1, Plt Count 179, MPV 10.2, Immature Gran % (Auto) 0.300, Neut % (Auto) 58.8, Lymph % (Auto) 32.7, [place] % (Auto) 4.9, Eos % (Auto) 3.1, Baso % (Auto) 0.2, Absolute Neuts (auto) 3.5, Absolute Lymphs (auto) 1.92, Nucleated RBC % 0 04/14/20 16:20: Sodium Cancelled, Potassium Cancelled, Chloride Cancelled, Carbon Dioxide Cancelled, Anion Gap Cancelled, BUN Cancelled, Creatinine Cancelled, Estim Creat Clear Calc Cancelled, Est GFR (MDRD) Af Amer Cancelled, Est GFR (MDRD) Non-Af Cancelled, BUN/Creatinine Ratio Cancelled, Glucose Cancelled, Calcium Cancelled, Total Bilirubin Cancelled, AST Cancelled, ALT Cancelled, Alkaline Phosphatase Cancelled, Total Protein Cancelled, Albumin Cancelled, Globulin Cancelled, Albumin/Globulin Ratio Cancelled 04/14/20 16:20: Ethyl Alcohol Cancelled 04/14/20 16:30: Urine Opiates Screen NEGATIVE, Urine Methadone Screen NEGATIVE, Ur Barbiturates Screen NEGATIVE, Ur Phencyclidine Scrn NEGATIVE, Ur Amphetamines Screen POSITIVE H, U Methamphetamin-MDMA POSITIVE H, U Benzodiazepines Scrn NEGATIVE, Urine Cocaine Screen NEGATIVE, U Cannabinoids Screen POSITIVE H, Ur Drug Screen Comment 04/14/20 18:08: Sodium 137, Potassium 3.5, Chloride 104, Carbon Dioxide 28.0, Anion Gap 5, BUN 8, Creatinine 0.83, Estim Creat Clear Calc 134.74, Est GFR (MDRD) Af Amer 139, Est GFR (MDRD) Non-Af 115, BUN/Creatinine Ratio 9.6 L, Glucose 112 H, Calcium 8.6, Total Bilirubin 0.40, AST 33, ALT 87 H, Alkaline Phosphatase 94, Total Protein 6.9, Albumin 3.3, Globulin 3.6, Albumin/Globulin Ratio 0.9 04/14/20 18:08: Ethyl Alcohol < 3.0 04/14/20 18:08: Hepatitis A IgM Ab Pending, Hepatitis A Ab Total Pending, Hep Bs Antigen Pending, Hep B Core Total Ab Pending, Hep B Core IgM Ab Pending 04/14/20 18:08: HIV 1&2 Antibody Non-Reactive Current Medications Acetaminophen (Tylenol) 650 mg PO Q6H PRN PRN PRN Reason: Pain Score 1-10/Temp > 100.7 F Buprenorphine HCl (Buprenorphine Hcl) 4 mg SL Q8H [facility]; Taper Stop: 04/17/20 18:29 Last Admin: 04/15/20 10:19 Dose: 4 mg Documented by: Buspirone HCl (Buspar) 10 mg PO BID GABBY Last Admin: 04/15/20 09:17 Dose: 10 mg Documented by: Clonidine (Catapres) 0.1 mg PO Q8H PRN PRN PRN Reason: RESTLESSNESS Last Admin: 04/15/20 06:49 Dose: 0.1 mg Documented by: Dicyclomine HCl (Bentyl) 20 mg PO Q6H PRN PRN PRN Reason: Abdominal Discomfort Last Admin: 04/15/20 06:49 Dose: 20 mg Documented by: Gabapentin (Neurontin) 300 mg PO Q8H PRN PRN PRN Reason: moderate to severe anxiety Last Admin: 04/15/20 10:19 Dose: 300 mg Documented by: Hydroxyzine Pamoate (Vistaril Pamoate Capsule) 50 mg PO Q6H PRN PRN PRN Reason: mild anxiety Last Admin: 04/15/20 01:40 Dose: 50 mg Documented by: Loperamide HCl (Imodium) 2 mg PO Q4H PRN PRN PRN Reason: LOOSE STOOLS Methocarbamol (Methocarbamol) 1,500 mg PO Q6H PRN PRN PRN Reason: MUSCLE SPASM Last Admin: 04/15/20 01:40 Dose: 1,500 mg Documented by: Nutritional Formula (Lactose Free) (Ensure Enlive) 120 ml PO 4X/DAY GABBY Last Admin: 04/15/20 09:17 Dose: 120 ml Documented by: Ondansetron HCl (Zofran) 8 mg PO Q8H PRN PRN PRN Reason: NAUSEA Trazodone HCl (Desyrel) 100 mg PO QHS PRN PRN PRN Reason: INSOMNIA Medical Necessity - Tobacco Use Smoking Status: Current every day smoker Tobacco Use: Cigarettes Assessment/Plan All Active Problems (Last Reviewed 05/19/19 @ 09:48 by Marium Paul) Suicide attempt (Resolved) Seizures (Resolved) Antihistamines overdose (Resolved) Sinus tachycardia (Resolved) Ventricular ectopy (Resolved) 1. Acute opioid withdrawal-buprenorphine taper. PRN regimen for somatic complaints. CINA protocol. [facility] consult. Hepatitis panel pending. Tox screen positive for amphetamines, methamphetamines, cannabinoids. Negative for opioids? 2. Polysubstance abuse/alcohol dependence-patient admits to benzodiazepine, methamphetamine, marijuana use in addition to heroin. Tox screen as noted above. 3. Anxiety/depression/PTSD/history of suicide attempt-denies current suicidal ideations. Initiated on BuSpar which patient has been on in the past. Will need further outpatient follow-up. 4. Chronic hepatitis C-outpatient follow-up once 6 months clean. 5. Tobacco dependence-encouraged cessation. Nicotine replacement patch. 6. History of seizures related to opioid withdrawal-seizure precautions. DVT prophylaxis-not indicated, early ambulation This patient was seen by ROBERTA Beauchamp under the supervision of Dr. Menard. <Constantino Menard - Last Filed: 04/15/20 13:47> - Physical Exam Vitals/I&O's: Vital Signs Temp Pulse Resp BP Pulse Ox 36.7 C 63 16 107/68 98 04/15/20 05:22 04/15/20 05:22 04/15/20 05:22 04/15/20 05:22 04/15/20 05:22 Oxygen Delivery Method Room Air Weight: 73.2 kg Body Mass Index (BMI) 21.2 Intake and Output for Last 24 Hours 04/13/20 04/14/20 04/15/20 23:59 23:59 23:59 Intake Total 250 / 250 Balance 250 / 250 General: Alert, Cooperative HEENT: Atraumatic, Normocephalic Lungs: Clear to auscultation, Normal air movement Cardiovascular: Regular rate, No murmurs Abdomen: Bowel Sounds Present, Soft, Non Tender Extremities: No clubbing, No cyanosis, No edema, Capillary Refill Less than 3 Seconds Skin: No rashes, No breakdown Musculoskeletal: No Tenderness to Palpation of Joints or Extremities Neurological: Cranial nerves II-XII grossly intact, Neuro grossly intact Laboratory Results 04/14/20 16:20: WBC 5.9, RBC 4.52 L, Hgb 13.6, Hct 41.1, MCV 90.9, MCH 30.1, MCHC 33.1, RDW Std Deviation 39.8, RDW Coeff of Macey 12.1, Plt Count 179, MPV 10.2, Immature Gran % (Auto) 0.300, Neut % (Auto) 58.8, Lymph % (Auto) 32.7, [place] % (Auto) 4.9, Eos % (Auto) 3.1, Baso % (Auto) 0.2, Absolute Neuts (auto) 3.5, Absolute Lymphs (auto) 1.92, Nucleated RBC % 0 04/14/20 16:20: Sodium Cancelled, Potassium Cancelled, Chloride Cancelled, Carbon Dioxide Cancelled, Anion Gap Cancelled, BUN Cancelled, Creatinine Cancelled, Estim Creat Clear Calc Cancelled, Est GFR (MDRD) Af Amer Cancelled, Est GFR (MDRD) Non-Af Cancelled, BUN/Creatinine Ratio Cancelled, Glucose Cancelled, Calcium Cancelled, Total Bilirubin Cancelled, AST Cancelled, ALT Cancelled, Alkaline Phosphatase Cancelled, Total Protein Cancelled, Albumin Cancelled, Globulin Cancelled, Albumin/Globulin Ratio Cancelled 04/14/20 16:20: Ethyl Alcohol Cancelled 04/14/20 16:30: Urine Opiates Screen NEGATIVE, Urine Methadone Screen NEGATIVE, Ur Barbiturates Screen NEGATIVE, Ur Phencyclidine Scrn NEGATIVE, Ur Amphetamines Screen POSITIVE H, U Methamphetamin-MDMA POSITIVE H, U Benzodiazepines Scrn NEGATIVE, Urine Cocaine Screen NEGATIVE, U Cannabinoids Screen POSITIVE H, Ur Drug Screen Comment 04/14/20 18:08: Sodium 137, Potassium 3.5, Chloride 104, Carbon Dioxide 28.0, Anion Gap 5, BUN 8, Creatinine 0.83, Estim Creat Clear Calc 134.74, Est GFR (MDRD) Af Amer 139, Est GFR (MDRD) Non-Af 115, BUN/Creatinine Ratio 9.6 L, Glucose 112 H, Calcium 8.6, Total Bilirubin 0.40, AST 33, ALT 87 H, Alkaline Phosphatase 94, Total Protein 6.9, Albumin 3.3, Globulin 3.6, Albumin/Globulin Ratio 0.9 04/14/20 18:08: Ethyl Alcohol < 3.0 04/14/20 18:08: Hepatitis A IgM Ab Pending, Hepatitis A Ab Total Pending, Hep Bs Antigen Pending, Hep B Core Total Ab Pending, Hep B Core IgM Ab Pending 04/14/20 18:08: HIV 1&2 Antibody Non-Reactive Current Medications Acetaminophen (Tylenol) 650 mg PO Q6H PRN PRN PRN Reason: Pain Score 1-10/Temp > 100.7 F Buprenorphine HCl (Buprenorphine Hcl) 4 mg SL Q8H GABBY; Taper Stop: 04/17/20 18:29 Last Admin: 04/15/20 10:19 Dose: 4 mg Documented by: Buspirone HCl (Buspar) 10 mg PO BID [facility] Last Admin: 04/15/20 09:17 Dose: 10 mg Documented by: Clonidine (Catapres) 0.1 mg PO Q8H PRN PRN PRN Reason: RESTLESSNESS Last Admin: 04/15/20 06:49 Dose: 0.1 mg Documented by: Dicyclomine HCl (Bentyl) 20 mg PO Q6H PRN PRN PRN Reason: Abdominal Discomfort Last Admin: 04/15/20 06:49 Dose: 20 mg Documented by: Gabapentin (Neurontin) 300 mg PO Q8H PRN PRN PRN Reason: moderate to severe anxiety Last Admin: 04/15/20 10:19 Dose: 300 mg Documented by: Hydroxyzine Pamoate (Vistaril Pamoate Capsule) 50 mg PO Q6H PRN PRN PRN Reason: mild anxiety Last Admin: 04/15/20 01:40 Dose: 50 mg Documented by: Loperamide HCl (Imodium) 2 mg PO Q4H PRN PRN PRN Reason: LOOSE STOOLS Methocarbamol (Methocarbamol) 1,500 mg PO Q6H PRN PRN PRN Reason: MUSCLE SPASM Last Admin: 04/15/20 01:40 Dose: 1,500 mg Documented by: Nutritional Formula (Lactose Free) (Ensure Enlive) 120 ml PO 4X/DAY [facility] Last Admin: 04/15/20 09:17 Dose: 120 ml Documented by: Ondansetron HCl (Zofran) 8 mg PO Q8H PRN PRN PRN Reason: NAUSEA Trazodone HCl (Desyrel) 100 mg PO QHS PRN PRN PRN Reason: INSOMNIA Assessment/Plan Patient seen and examined independently. Data reviewed. I agree with the above note by the nurse practitioner. 1. Acute opiate withdrawal: Continue with buprenorphine taper. As needed medication for other complaints. 180 on consultation. Inpatient E&M: [id number] [facility] L2
[2020-04-15 14:18] VITALS: BP 113/65; PULSE 78; RESP 16; TEMP 37; O2SAT 97
[2020-04-15] MEDS: traZODone 100 MG Tablet PO (22:00)
[2020-04-15] MEDS: Acetaminophen 325 MG Tablet 650 MG PO (22:06)
[2020-04-16 01:11] VITALS: BP 120/76; PULSE 88; RESP 16; TEMP 36.9; O2SAT 100
[2020-04-16] MEDS: Buprenorphine HCl 2 MG TAB.SUBL SL ×3 (02:38→17:41)
[2020-04-16 04:07] LABS: HEPATITIS B SURFACE AG Negative (Negative); Hepatitis A AB, Total Positive (Negative); Hepatitis A IgM Antibody Negative (Negative); Hepatitis B Core AB IgM Negative (Negative); Hepatitis B Core Ab Total Negative (Negative)
--- NOTE | 2020-04-16 09:51 | ADDICTION ---
This service writer has sent referral to [facility] Admissions Team and is waiting for approval for direct admit into [facility] from [facility]. This service writer will update [facility] staff as appropriate.
[2020-04-16] MEDS: busPIRone 5 MG Tablet 10 MG PO ×2 (09:58→20:49)
[2020-04-16 10:00] VITALS: BP 125/75; PULSE 79; RESP 18; TEMP 36.6; O2SAT 96
[2020-04-16] MEDS: cloNIDine HCl 0.1 MG Tablet PO ×2 (10:04→20:49)
[2020-04-16] MEDS: Methocarbamol 750 MG Tablet 1500 MG PO ×2 (10:04→17:41)
[2020-04-16] MEDS: Dicyclomine 10 MG Capsule 20 MG PO ×2 (10:04→17:41)
[2020-04-16] MEDS: Ondansetron 8 MG Tablet PO (10:04)
--- NOTE | 2020-04-16 10:13 | PN_ITS ---
<Barbara Godinez MILL HOUSE SUPERVISOR - Last Filed: 04/16/20 10:18> Subjective: Patient seen and examined. Continues to complain of general malaise. Plans on residential treatment, pathway house at discharge. - Physical Exam Vitals/I&O's: Vital Signs Temp Pulse Resp BP Pulse Ox 98.4 F 88 16 120/76 100 04/16/20 01:11 04/16/20 01:11 04/16/20 01:11 04/16/20 01:11 04/16/20 01:11 Oxygen Delivery Method Room Air Weight: 161 lb 6.054 oz Body Mass Index (BMI) 21.2 Intake and Output for Last 24 Hours 04/14/20 04/15/20 04/16/20 23:59 23:59 23:59 Intake Total 250 / 250 850 / 850 Balance 250 / 250 850 / 850 General: Alert, Oriented x3, Cooperative HEENT: Atraumatic, PERRLA, EOMI, Normocephalic Neck: Supple, No JVD, Negative Carotid Bruits Lungs: Clear to auscultation, Normal air movement Cardiovascular: Regular rate, No murmurs Abdomen: Bowel Sounds Present, Soft, Non Tender, Non-Distended Extremities: No clubbing, No cyanosis, No edema, Capillary Refill Less than 3 Seconds Skin: No rashes, No breakdown Musculoskeletal: No Tenderness to Palpation of Joints or Extremities Neurological: Cranial nerves II-XII grossly intact, Neuro grossly intact Psych/Mental Status: Anxious Current Medications Acetaminophen (Tylenol) 650 mg PO Q6H PRN PRN PRN Reason: Pain Score 1-10/Temp > 100.7 F Last Admin: 04/15/20 22:06 Dose: 650 mg Documented by: Buprenorphine HCl (Buprenorphine Hcl) 2 mg SL Q8H [facility]; Taper Stop: 04/17/20 18:29 Last Admin: 04/16/20 10:04 Dose: 2 mg Documented by: Buspirone HCl (Buspar) 10 mg PO BID GABBY Last Admin: 04/16/20 09:58 Dose: 10 mg Documented by: Clonidine (Catapres) 0.1 mg PO Q8H PRN PRN PRN Reason: RESTLESSNESS Last Admin: 04/16/20 10:04 Dose: 0.1 mg Documented by: Dicyclomine HCl (Bentyl) 20 mg PO Q6H PRN PRN PRN Reason: Abdominal Discomfort Last Admin: 04/16/20 10:04 Dose: 20 mg Documented by: Gabapentin (Neurontin) 300 mg PO Q8H PRN PRN PRN Reason: moderate to severe anxiety Last Admin: 04/15/20 22:00 Dose: 300 mg Documented by: Hydroxyzine Pamoate (Vistaril Pamoate Capsule) 50 mg PO Q6H PRN PRN PRN Reason: mild anxiety Last Admin: 04/15/20 01:40 Dose: 50 mg Documented by: Loperamide HCl (Imodium) 2 mg PO Q4H PRN PRN PRN Reason: LOOSE STOOLS Methocarbamol (Methocarbamol) 1,500 mg PO Q6H PRN PRN PRN Reason: MUSCLE SPASM Last Admin: 04/16/20 10:04 Dose: 1,500 mg Documented by: Nicotine (Nicoderm Cq (Pbkc)) 14 mg TRANSDERM. DAILY GABBY Last Admin: 04/16/20 10:04 Dose: 14 mg Documented by: Nutritional Formula (Lactose Free) (Ensure Enlive) 120 ml PO 4X/DAY GABBY Last Admin: 04/16/20 10:04 Dose: 120 ml Documented by: Ondansetron HCl (Zofran) 8 mg PO Q8H PRN PRN PRN Reason: NAUSEA Last Admin: 04/16/20 10:04 Dose: 8 mg Documented by: Trazodone HCl (Desyrel) 100 mg PO QHS PRN PRN PRN Reason: INSOMNIA Last Admin: 04/15/20 22:00 Dose: 100 mg Documented by: Medical Necessity - Tobacco Use Smoking Status: Current every day smoker Tobacco Use: Cigarettes Assessment/Plan All Active Problems (Last Reviewed 05/19/19 @ 09:48 by Marium Paul) Suicide attempt (Resolved) Seizures (Resolved) Antihistamines overdose (Resolved) Sinus tachycardia (Resolved) Ventricular ectopy (Resolved) 1. Acute opioid withdrawal-buprenorphine taper. PRN regimen for somatic complaints. CINA protocol. [employer] consult. Hepatitis panel pending. Tox screen positive for amphetamines, methamphetamines, cannabinoids. Negative for opioids? Plan for pathway house, residential facility at discharge. 2. Polysubstance abuse/alcohol dependence-patient admits to benzodiazepine, methamphetamine, marijuana use in addition to heroin. Tox screen as noted above. 3. Anxiety/depression/PTSD/history of suicide attempt-denies current suicidal ideations. Initiated on BuSpar which patient has been on in the past. Recommend addition of antidepressant as well. Will need further outpatient follow-up. 4. Chronic hepatitis C-outpatient follow-up once 6 months clean. 5. Tobacco dependence-encouraged cessation. Nicotine replacement patch. 6. History of seizures related to opioid withdrawal-seizure precautions. DVT prophylaxis-not indicated, early ambulation This patient was seen by ROBERTA Beauchamp under the supervision of Dr. Menard. <Constantino Menard - Last Filed: 04/16/20 14:11> Subjective: Still feeling ill. +cramping, myalgias. - Physical Exam Vitals/I&O's: Vital Signs Temp Pulse Resp BP Pulse Ox 36.6 C 79 18 125/75 H 96 04/16/20 10:00 04/16/20 10:00 04/16/20 10:00 04/16/20 10:00 04/16/20 10:00 Oxygen Delivery Method Room Air Weight: 73.2 kg Body Mass Index (BMI) 21.2 Intake and Output for Last 24 Hours 04/14/20 04/15/20 04/16/20 23:59 23:59 23:59 Intake Total 250 / 250 850 / 850 Balance 250 / 250 850 / 850 General: Alert, Cooperative HEENT: Atraumatic, PERRLA, EOMI, Normocephalic Lungs: Clear to auscultation, Normal air movement, No rhonchi, No wheeze Cardiovascular: Regular rate, Regular Rhythm, Normal S1, Normal S2, No murmurs Abdomen: Bowel Sounds Present, Soft, Non Tender, Non-Distended Extremities: No clubbing, No cyanosis Current Medications Acetaminophen (Tylenol) 650 mg PO Q6H PRN PRN PRN Reason: Pain Score 1-10/Temp > 100.7 F Last Admin: 04/15/20 22:06 Dose: 650 mg Documented by: Buprenorphine HCl (Buprenorphine Hcl) 2 mg SL Q8H [facility]; Taper Stop: 04/17/20 18:29 Last Admin: 04/16/20 10:04 Dose: 2 mg Documented by: Buspirone HCl (Buspar) 10 mg PO BID [facility] Last Admin: 04/16/20 09:58 Dose: 10 mg Documented by: Clonidine (Catapres) 0.1 mg PO Q8H PRN PRN PRN Reason: RESTLESSNESS Last Admin: 04/16/20 10:04 Dose: 0.1 mg Documented by: Dicyclomine HCl (Bentyl) 20 mg PO Q6H PRN PRN PRN Reason: Abdominal Discomfort Last Admin: 04/16/20 10:04 Dose: 20 mg Documented by: Gabapentin (Neurontin) 300 mg PO Q8H PRN PRN PRN Reason: moderate to severe anxiety Last Admin: 04/15/20 22:00 Dose: 300 mg Documented by: Hydroxyzine Pamoate (Vistaril Pamoate Capsule) 50 mg PO Q6H PRN PRN PRN Reason: mild anxiety Last Admin: 04/15/20 01:40 Dose: 50 mg Documented by: Loperamide HCl (Imodium) 2 mg PO Q4H PRN PRN PRN Reason: LOOSE STOOLS Methocarbamol (Methocarbamol) 1,500 mg PO Q6H PRN PRN PRN Reason: MUSCLE SPASM Last Admin: 04/16/20 10:04 Dose: 1,500 mg Documented by: Nicotine (Nicoderm Cq (Pbkc)) 14 mg TRANSDERM. DAILY [facility] Last Admin: 04/16/20 10:04 Dose: 14 mg Documented by: Nutritional Formula (Lactose Free) (Ensure Enlive) 120 ml PO 4X/DAY GABBY Last Admin: 04/16/20 10:04 Dose: 120 ml Documented by: Ondansetron HCl (Zofran) 8 mg PO Q8H PRN PRN PRN Reason: NAUSEA Last Admin: 04/16/20 10:04 Dose: 8 mg Documented by: Trazodone HCl (Desyrel) 100 mg PO QHS PRN PRN PRN Reason: INSOMNIA Last Admin: 04/15/20 22:00 Dose: 100 mg Documented by: Assessment/Plan Patient seen and examined independently. Data reviewed. I agree with the above note by the nurse practitioner. 1. Acute opiate withdrawal: Continued on buprenorphine taper. Discussed with 180. Plan is to get him into an inpatient program. That program should be able to accept him in the next 1 to 2 days. Patient will have completed his taper on the , however, if he is unable to get into the program then we will keep him here until that opens up presuming it is not an unreasonable amount of time. Inpatient E&M: 52390 Subs Hosp L2
--- NOTE | 2020-04-16 14:42 | CASEMGMT ---
Social Work Note SW [facility] up at 10:00am for direct admit to [facility]. Mallika Dotson FANCY NEEDLEWORKER, ELECTRIC FURNACE OPERATOR
[2020-04-16 16:24] LABS: Hep B Surface Antibodies Reactive (.)
[2020-04-16 16:25] LABS: Hepatitis C Ab >11.0 s/co ratio (0.0-0.9)
[2020-04-16 17:37] VITALS: BP 120/71; PULSE 71; RESP 14; TEMP 36.7; O2SAT 100
[2020-04-16] MEDS: Gabapentin 300 MG Capsule PO (17:41)
[2020-04-16] MEDS: Acetaminophen 325 MG Tablet 650 MG PO (17:41)
[2020-04-16 20:46] VITALS: BP 121/78; PULSE 74; RESP 14; TEMP 36.5; O2SAT 99
[2020-04-16] MEDS: hydrOXYzine PAM 25 MG Capsule 50 MG PO (20:49)
[2020-04-16] MEDS: traZODone 100 MG Tablet PO (20:49)
[2020-04-17 05:30] VITALS: BP 102/66; PULSE 75; RESP 14; TEMP 36.8; O2SAT 98
[2020-04-17] MEDS: hydrOXYzine PAM 25 MG Capsule 50 MG PO ×2 (05:38→14:20)
[2020-04-17] MEDS: Ondansetron 8 MG Tablet PO ×2 (05:38→21:09)
[2020-04-17] MEDS: Methocarbamol 750 MG Tablet 1500 MG PO ×3 (05:38→21:09)
[2020-04-17] MEDS: Buprenorphine HCl 2 MG TAB.SUBL SL (05:38)
[2020-04-17] MEDS: Dicyclomine 10 MG Capsule 20 MG PO ×2 (05:38→21:10)
[2020-04-17 09:45] VITALS: BP 106/62; PULSE 79; RESP 16; TEMP 37.1; O2SAT 98
[2020-04-17] MEDS: busPIRone 5 MG Tablet 10 MG PO ×2 (09:47→21:10)
[2020-04-17] MEDS: Acetaminophen 325 MG Tablet 650 MG PO (09:51)
[2020-04-17] MEDS: Gabapentin 300 MG Capsule PO ×2 (09:51→21:09)
[2020-04-17] MEDS: cloNIDine HCl 0.1 MG Tablet PO ×2 (09:51→21:10)
--- NOTE | 2020-04-17 10:05 | ADDICTION ---
This race and sports book writer met with patient in his room to finalize d/c plans. Patient was alert and oriented and participated appropriately. This race and sports book writer completed full diagnostic assessment in preparation of [facility] admit. This patient's discharge plan is as follows: - He will directly admit into [facility] upon d/c from [facility]. - [facility] to provide transport on 04/18/2020 at 10am.
--- NOTE | 2020-04-17 11:00 | PN_ITS ---
Reason for Visit: opiate withdrawal Subjective: Still sore all over, but feeling better overall. Vitals/I&O's: Vital Signs Temp Pulse Resp BP Pulse Ox 37.1 C 79 16 106/62 98 04/17/20 09:45 04/17/20 09:45 04/17/20 09:45 04/17/20 09:45 04/17/20 09:45 Oxygen Delivery Method Room Air Weight: 73.2 kg Body Mass Index (BMI) 21.2 Intake and Output for Last 24 Hours 04/15/20 04/16/20 04/17/20 23:59 23:59 23:59 Intake Total 850 / 1450 1100 / 1100 Balance 850 / 1450 1100 / 1100 General: Alert, No apparent distress HEENT: Atraumatic, Normocephalic Psych/Mental Status: Normal Affect, Appropriate Laboratory Results 04/14/20 18:08: Hepatitis A IgM Ab Negative, Hepatitis A Ab Total Positive H, Hep Bs Antigen Negative, Hep B Core Total Ab Negative, Hep B Core IgM Ab Negative, Hepatitis C Ab Confirm >11.0 H Current Medications Acetaminophen (Tylenol) 650 mg PO Q6H PRN PRN PRN Reason: Pain Score 1-10/Temp > 100.7 F Last Admin: 04/17/20 09:51 Dose: 650 mg Documented by: Buprenorphine HCl (Buprenorphine Hcl) 2 mg SL Q12H [facility]; Taper Stop: 04/17/20 18:29 Last Admin: 04/17/20 05:38 Dose: 2 mg Documented by: Buspirone HCl (Buspar) 10 mg PO BID GABBY Last Admin: 04/17/20 09:47 Dose: 10 mg Documented by: Clonidine (Catapres) 0.1 mg PO Q8H PRN PRN PRN Reason: RESTLESSNESS Last Admin: 04/17/20 09:51 Dose: 0.1 mg Documented by: Dicyclomine HCl (Bentyl) 20 mg PO Q6H PRN PRN PRN Reason: Abdominal Discomfort Last Admin: 04/17/20 05:38 Dose: 20 mg Documented by: Gabapentin (Neurontin) 300 mg PO Q8H PRN PRN PRN Reason: moderate to severe anxiety Last Admin: 04/17/20 09:51 Dose: 300 mg Documented by: Hydroxyzine Pamoate (Vistaril Pamoate Capsule) 50 mg PO Q6H PRN PRN PRN Reason: mild anxiety Last Admin: 04/17/20 05:38 Dose: 50 mg Documented by: Loperamide HCl (Imodium) 2 mg PO Q4H PRN PRN PRN Reason: LOOSE STOOLS Methocarbamol (Methocarbamol) 1,500 mg PO Q6H PRN PRN PRN Reason: MUSCLE SPASM Last Admin: 04/17/20 05:38 Dose: 1,500 mg Documented by: Nicotine (Nicoderm Cq (Pbkc)) 14 mg TRANSDERM. DAILY GABBY Last Admin: 04/17/20 09:48 Dose: 14 mg Documented by: Nutritional Formula (Lactose Free) (Ensure Enlive) 120 ml PO 4X/DAY GABBY Last Admin: 04/17/20 09:51 Dose: 120 ml Documented by: Ondansetron HCl (Zofran) 8 mg PO Q8H PRN PRN PRN Reason: NAUSEA Last Admin: 04/17/20 05:38 Dose: 8 mg Documented by: Trazodone HCl (Desyrel) 100 mg PO QHS PRN PRN PRN Reason: INSOMNIA Last Admin: 04/16/20 20:49 Dose: 100 mg Documented by: STROKE Vital Signs/Narrative: Vital Signs Temp Pulse Resp BP Pulse Ox 04/17/20 09:45 37.1 C 79 16 106/62 98 Medical Necessity - Tobacco Use Smoking Status: Current every day smoker Tobacco Use: Cigarettes Assessment/Plan All Active Problems (Last Reviewed 05/19/19 @ 09:48 by Marium Paul) Suicide attempt (Resolved) Seizures (Resolved) Antihistamines overdose (Resolved) Sinus tachycardia (Resolved) Ventricular ectopy (Resolved) 1. Acute opiate withdrawal: * completed buprenorphine taper. * Plan for patient to go to [facility] on 04/18 Inpatient E&M: 52500 [facility] Hosp L1
[2020-04-17 14:15] VITALS: BP 105/57; PULSE 77; RESP 16; TEMP 36.2; O2SAT 96
[2020-04-17 21:04] VITALS: BP 103/56; PULSE 68; RESP 14; TEMP 36.4; O2SAT 97
[2020-04-17] MEDS: traZODone 100 MG Tablet PO (21:10)
[2020-04-18 02:30] VITALS: BP 93/62; PULSE 67; RESP 14; TEMP 36.3; O2SAT 95
[2020-04-18] MEDS: hydrOXYzine PAM 25 MG Capsule 50 MG PO (02:39)
[2020-04-18] MEDS: Senna/Docusate Sodium 1 Tablet 2 TABLET PO (02:39)
[2020-04-18 08:39] VITALS: BP 105/59; PULSE 78; RESP 16; TEMP 36.9; O2SAT 95
--- NOTE | 2020-04-18 08:46 | PCM.DC ---
You will use the following diet at home:: No restrictions Discharge Activity: Return to Normal Activity Allergies/Adverse Reactions: Allergies ibuprofen Allergy (Verified 04/14/20 15:46) Hives orphenadrine citrate [From Norflex] Allergy (Verified 04/14/20 15:46) Hives Medications to take at Discharge Ondansetron [Zofran] 8 mg PO Q8H PRN PRN #15 tab 04/18/20 Pantoprazole Sodium 40 mg PO DAILY #10 tablet. 04/18/20 The following prescriptions were given: Pantoprazole Sodium 40 mg PO DAILY #10 tablet. Transmission Status: Pending to [facility] Ondansetron [Zofran] 8 mg PO Q8H PRN PRN #15 tab PRN Reason: Nausea Transmission Status: Pending to [facility] Primary Care Physician: Ian Sanchez NP, WEAVING TEACHER-C [Primary Care Provider] - Test Results: Test results from this visit will be discussed in further detail at your follow-up appointment, if applicable. Please Follow Up With: EIGHTY,ONE When: today Proposed Discharge Date: 04/18/20
--- NOTE | 2020-04-18 08:47 | DS.PCM_ITS ---
Discharge Date and Diagnosis Date of Admission: 04/14/20 Date of Discharge: 04/18/20 - Primary Discharge Diagnosis Acute Problems: acute opiate withdrawal - Secondary Discharge Diagnosis Chronic Problems: Chronic Problems (Last Reviewed 05/19/19 @ 09:48 by Marium Paul) Kidney stones (Chronic) Drug abuse (Chronic) Alcohol abuse (Chronic) Hepatitis C (Chronic) Asthma (Chronic) Hospital Course and Treatment Operations: None Procedures: None Summary of Care Provided: The patient is a 29 year old M presents for treatment for acute opiate withdrawal. Patient was put on the buprenorphine taper. Patient did not have immediate response with but She did feel better. Yesterday, patient was having nausea and did vomit x1. Patient complaining of some abdominal pain. Did not eat breakfast today. Patient will receive a prescription for pantoprazole as well as ondansetron patient will be discharged and then admitted to the [address] [place] [address]. [] - Physical Exam Vitals/I&O's: Vital Signs Temp Pulse Resp BP Pulse Ox 36.9 C 78 16 105/59 L 95 04/18/20 08:39 04/18/20 08:39 04/18/20 08:39 04/18/20 08:39 04/18/20 08:39 Oxygen Delivery Method Room Air Weight: 73.2 kg Body Mass Index (BMI) 21.2 Intake and Output for Last 24 Hours 04/16/20 04/17/20 04/18/20 23:59 23:59 23:59 Intake Total 850 / 1450 1100 / 1600 900 / 900 Balance 850 / 1450 1100 / 1600 900 / 900 General: Alert, No apparent distress HEENT: Atraumatic, Normocephalic Psych/Mental Status: Appropriate Current Medications Acetaminophen (Tylenol) 650 mg PO Q6H PRN PRN PRN Reason: Pain Score 1-10/Temp > 100.7 F Last Admin: 04/17/20 09:51 Dose: 650 mg Documented by: Buspirone HCl (Buspar) 10 mg PO BID GABBY Last Admin: 04/17/20 21:10 Dose: 10 mg Documented by: Clonidine (Catapres) 0.1 mg PO Q8H PRN PRN PRN Reason: RESTLESSNESS Last Admin: 04/17/20 21:10 Dose: 0.1 mg Documented by: Dicyclomine HCl (Bentyl) 20 mg PO Q6H PRN PRN PRN Reason: Abdominal Discomfort Last Admin: 04/17/20 21:10 Dose: 20 mg Documented by: Gabapentin (Neurontin) 300 mg PO Q8H PRN PRN PRN Reason: moderate to severe anxiety Last Admin: 04/17/20 21:09 Dose: 300 mg Documented by: Hydroxyzine Pamoate (Vistaril Pamoate Capsule) 50 mg PO Q6H PRN PRN PRN Reason: mild anxiety Last Admin: 04/18/20 02:39 Dose: 50 mg Documented by: Loperamide HCl (Imodium) 2 mg PO Q4H PRN PRN PRN Reason: LOOSE STOOLS Methocarbamol (Methocarbamol) 1,500 mg PO Q6H PRN PRN PRN Reason: MUSCLE SPASM Last Admin: 04/17/20 21:09 Dose: 1,500 mg Documented by: Nicotine (Nicoderm Cq (Pbkc)) 14 mg TRANSDERM. DAILY [facility] Last Admin: 04/17/20 09:48 Dose: 14 mg Documented by: Nutritional Formula (Lactose Free) (Ensure Enlive) 120 ml PO 4X/DAY [facility] Last Admin: 04/17/20 21:04 Dose: Not Given Documented by: Ondansetron HCl (Zofran) 8 mg PO Q8H PRN PRN PRN Reason: NAUSEA Last Admin: 04/17/20 21:09 Dose: 8 mg Documented by: Polyethylene Glycol (Miralax) 17 gm PO DAILY [facility] Senna/Docusate Sodium (Senokot-S, Sofía-Colace) 1 tablet PO BID PRN PRN PRN Reason: Constipation Trazodone HCl (Desyrel) 100 mg PO QHS PRN PRN PRN Reason: INSOMNIA Last Admin: 04/17/20 21:10 Dose: 100 mg Documented by: Discharge Diet: No Restrictions Discharge Activity: Return to Normal Activity Home Medications: Medications to take at Discharge Ondansetron [Zofran] 8 mg PO Q8H PRN PRN #15 tab 04/18/20 Pantoprazole Sodium 40 mg PO DAILY #10 tablet. 04/18/20 Following Prescriptions Were Given to Patient: Pantoprazole Sodium 40 mg PO DAILY #10 tablet. Transmission Status: Pending to [facility] Ondansetron [Zofran] 8 mg PO Q8H PRN PRN #15 tab PRN Reason: Nausea Transmission Status: Pending to [facility] Primary Care Physician: Ian Sanchez NP, WASTEWATER PROJECT ENGINEER-C [Primary Care Provider] - Please Follow Up With: EIGHTY,ONE When: today Disposition: Home Minutes spent on discharge:: 26 Patient Condition:: Good Medical Necessity - Tobacco Use Smoking Status: Current every day smoker Tobacco Use: Cigarettes Meaningful Use Info Meaningful Use Diagnoses (Choose all that apply): None applicable Inpatient E&M: 20939 Disch Hosp
[2020-04-18] MEDS: Polyethylene Glycol 3350 17 GM PACKET PO (08:55)
[2020-04-18] MEDS: Dicyclomine 10 MG Capsule 20 MG PO (08:55)
[2020-04-18] MEDS: busPIRone 5 MG Tablet 10 MG PO (08:55)
== END 2020-04-18 10:05 | DRG 897 ==
LOC: ED 16:02 → MS3 17:23
PROVIDERS: Nurse Practitioner Family; Admitting Provider Family Medicine; Emergency Provider Emergency Medicine; PCP Nurse Practitioner Family
DX: F11.23 Opioid dependence with withdrawal (principal); J45.909 Unspecified asthma, uncomplicated; B18.2 Chronic viral hepatitis C; F17.210 Nicotine dependence, cigarettes, uncomplicated; F32.9 Major depressive disorder, single episode, unspecified; F41.9 Anxiety disorder, unspecified; F43.10 Post-traumatic stress disorder, unspecified; F12.90 Cannabis use, unspecified, uncomplicated; F10.239 Alcohol dependence with withdrawal, unspecified; F15.90 Other stimulant use, unspecified, uncomplicated; Z91.5 Personal history of self-harm; Z59.0 Homelessness
CPT/HCPCS: 36415; 80053; 80307; 80320; 85025; 86703; 86704; 86705; 86706; 86708; 86709; 86803; 87340; 97802; 99283; 99406; G0480

== ENCOUNTER 2020-05-29 04:39 | Day surgery (SDC) | payer MEDICAID, SELFPAY ==
[2020-05-29] VITALS (9 sets, daily range): BP systolic 88–131; BP diastolic 62–86; PULSE 73–89; RESP 14–18; TEMP 36.5–36.8; O2SAT 96–100; BMI 24.3
--- NOTE | 2020-05-29 | GASB_PTH ---
PATIENT: LIZZ PAL [place] [facility] [id number] AGE/SX: 29/M ROOM: RE05/29/[address]: Dr. Arnav Meza MD : [id number] BED: DIS: 05/29/2020 SPEC #: [id number] RECD: 05/29/20 12:29 STATUS: MAI REErin #: [id number] OTILIO: 05/29/20 00:[address]: Arnav Meza DEPT: SURGICAL PATHOLOGY RECD BY: Fabio Zurita ENTERED: 05/29/20 12:29 SP TYPE: Gastric Bx OTHR DR: Ian Sanchez, UPPER SHAPER-C Tissues: A - Gastric mucous membrane B - Gastric mucous membrane Procedures: Special Stain Group II Surgery Specimen Level IV Alcian Blue/PAS (control) HEADER OPERATION: EGD ([facility]) PRE-OP DIAGNOSIS: Abdominal pain TISSUE SUBMITTED: A - Antral biopsy for H. pylori and pathology, B - GE junction biopsy MICROSCOPIC DIAGNOSIS A. Antral biopsy: Mild gastritis. See microscopic description and comment. B. GE junction, biopsy: Fragments of gastric mucosa with focal ulceration and moderate acute and chronic inflammation. Intestinal metaplasia (goblet cell metaplasia) is not identified. See comment. SJ:rg 05/30/20 COMMENT A. The results of immunohistochemistry for Helicobacter pylori will be reported separately ([id number]). B. Alcian blue/PAS stain with matched control is used in the evaluation of the specimen. MICROSCOPIC DESCRIPTION Slides are reviewed. A. The specimen shows fragments of gastric mucosa with chronic inflammatory cell infiltrates in the lamina propria consisting of lymphocytes and plasma cells, consistent with mild chronic gastritis. GROSS DESCRIPTION A - Received in fixative is one container labeled with the patient's name and designated antrum biopsy. The specimen consists of two irregular fragments of [place] soft tissue that in aggregate measure 0.6 x 0.3 x 0.1 cm. The specimen is totally submitted in one cassette. B - Received in fixative is one container labeled with the patient's name and designated GE junction biopsy. The specimen consists of two irregular fragments of [place] soft tissue that in aggregate measure 0.5 x 0.3 x 0.1 cm. The specimen is totally submitted in one cassette. / LIZET:tamika 05/29/20 TC:2 CPT: 73868 x2, 78886
--- NOTE | 2020-05-29 04:43 | RAD_ITS ---
STUDY: X-RAY - SOFT TISSUE NECK REASON FOR EXAM: Male, 29 years old. PT BELIEVES HE SWALLOWED A CHICKEN BONE LAST NIGHT. STATES DIFFICULTY SWALLOWING -- FEELS LIKE ITS STUCK AREA OF SC JOINTS TECHNIQUE: 2 view(s) of the neck were obtained. COMPARISON: None. FINDINGS: Normal visualized nasopharynx, oropharynx, hypopharynx. Normal epiglottis. Normal visualized subglottic tracheal air column. Normal prevertebral soft tissue structures. Normal visualized osseous structures. The soft tissue structures are unremarkable. RAD/Neck for Soft Tissue IMPRESSION: Normal x-ray soft tissue neck. Electronically Signed: Rosanne Mccormack, at 5:06 EST Tel , Service support ,
--- NOTE | 2020-05-29 04:43 | RAD_ITS ---
STUDY: X-RAY CHEST REASON FOR EXAM: Male, 29 years old. PT BELIEVES HE SWALLOWED A CHICKEN BONE LAST NIGHT. STATES DIFFICULTY SWALLOWING -- FEELS LIKE ITS STUCK AREA OF SC JOINTS TECHNIQUE: Frontal and lateral views of the chest. COMPARISON: None. FINDINGS: The lungs are clear and expanded. There is no demonstrated pleural abnormality. Normal size heart. Normal mediastinum and maycol. Normal visualized pulmonary arteries. Normal visualized aortic arch and descending thoracic aorta. Normal visualized thoracic spine. Normal visualized ribs, clavicles, and shoulders. There is no demonstrated abnormality of the visualized soft tissue structures of the upper abdomen. RAD/Chest PA and Lateral IMPRESSION: Normal x-ray examination of the chest. Electronically Signed: Rosanne Mccormack, at 5:05 EST Tel , Service support ,
--- NOTE | 2020-05-29 05:07 | ED.VIS.GEN ---
History of Present Illness Chief Complaint: Foreign Body Narrative: Patient presenting secondary to a foreign body sensation after eating a chicken bone. Patient states that at about 6 PM last night, he swallowed a chicken bone accidentally. Patient states that he felt it scraped down the back of his throat, and now feels as if it potentially is lodged. He states that he has a significant amount of pain anytime he swallows and difficulty with tolerating solids. He does report that he is able to tolerate liquids and saliva, but he has pain just below his collarbones and his chest anytime he swallows. He is never had any prior similar episodes in the past. Patient denies any difficulty swallowing prior to this, any unintended weight loss fevers chills night sweats history of cancer. No changes in appetite. Patient is not on any chronic medications. He is not a heavy drinker. Review of systems otherwise negative. Past Medical History - Allergies and Home Meds Allergies/Adverse Reactions: Allergies ibuprofen Allergy (Verified 05/29/20 04:42) Hives orphenadrine citrate [From Norflex] Allergy (Verified 05/29/20 04:42) Hives Primary Care Physician: Ian Sanchez NP, [employer] [Primary Care Provider] - Prior records reviewed: Yes Past Medical History: None Surgical History: tonsillectomy, - - Right hand surgery following football injury Smoking Status: Current every day smoker Alcohol: None Drugs: None - Family History Maternal Family History: Family History (Last Reviewed 05/19/19 @ 09:48 by Marium Paul) Unknown Alcoholism Suicide attempt Anxiety Arthritis Breast cancer Cancer Depression Myocardial infarction Kidney disease Seizures Family History: Reports: - - Denies known maternal medical history including cardiac history. Paternal Family History: Family History (Last Reviewed 05/19/19 @ 09:48 by Marium Paul) Unknown Alcoholism Suicide attempt Anxiety Arthritis Breast cancer Cancer Depression Myocardial infarction Kidney disease Seizures Family History: Reports: - - Denies known paternal medical history including cardiac history. Review of Systems General: Denies: Chills, Fever, Sweats Eyes: Denies: Visual changes - bilaterally, Diplopia ENT: Reports: - - Difficulty swallowing Cardiovascular: Denies: Chest pain, Palpitations Respiratory: Denies: Dyspnea, Cough, Dyspnea on exertion Gastrointestinal: Denies: Abdominal pain, Nausea, Vomiting, Diarrhea, Melena, Hematochezia Genitourinary: Denies: Dysuria, Hematuria, Frequency Musculoskeletal: Denies: Back pain, Extremity Pain Skin: Denies: Rash, Wounds Neurological: Denies: Headache, Weakness, Numbness Physical Exam Vital Signs/Narrative: Vital Signs Temp Pulse Resp BP Pulse Ox 05/29/20 04:39 98.0 F 87 16 131/86 H 100 Inital Vital Signs reviewed: Yes General: Well nourished, Well developed, No Acute Distress Head: Normocephalic, Atraumatic Eyes: Perrl, EOMI ENT: Moist mucous membranes, No rhinorrhea, - - Oropharynx is clear without any evidence of injury. No stridor. Neck: Supple, Nontender Cardiovascular: Regular rate, Regular rhythm, No murmurs Respiratory: No distress, CTA bilaterally, Chest nontender Abdomen: Soft, Nontender, Nondistended, Normal bowel sounds Back: Nontender, Normal Inspection Extremities: Nontender, No edema Skin: Normal color, No rash Neurological: Alert, Oriented x3, Cranial nerves II-XII grossly intact, Normal Strength, Normal Sensation Psychological: Normal affect, Normal Mood Diagnostic/Tx/Re-eval - Medical Decision Making Patient presented due to concern for a retained foreign body in the esophagus. His airway is patent, he has no respiratory distress, do not feel that this is something that would be lodged in the patient's pharynx, airway, or an aspiration event where this is gone into his trachea or lungs. IV was established patient was given glucagon, this did not resolve the patient's symptoms. Anytime the patient swallows liquids he grimaces in pain. I did perform a chest x-ray and a soft tissue neck x-ray which unfortunately were not able to identify any foreign bodies. Patient is having persistent symptoms, and there is still the possibility that this is a incomplete esophageal obstruction with a retained foreign body in the esophagus. I contacted on-call surgery, Dr. Meza, and the agreement is that the patient will be kept n.p.o. until he can receive upper endoscopy later this morning. Patient will be kept in the emergency department until he is sent to endoscopy, at which point he likely will be discharged upon recovery from sedation. ED Disposition - Plan for ED Patient: Disposition: Acute [facility] Diagnosis: Esophageal foreign body Instructions: ED Foreign Body Esophageal Rslv Referrals: Arnav Meza MD [STAFF PHYSICIAN] - (As directed)
[2020-05-29] MEDS: Glucagon 1 MG/ML Syringe IV (05:36)
[2020-05-29] MEDS: 0.9% Normal Saline 1,000 ML 150 ML IV (07:24)
--- NOTE | 2020-05-29 07:45 | PCM.HP.STD ---
Problem List (1) Esophageal foreign body Status: Acute Qualifiers: Encounter type: initial encounter Qualified Code(s): T18.108A - Unspecified foreign body in esophagus causing other injury, initial encounter History of Present Illness Date of Admission: 05/29/20 The patient is a 29 year old M who presented to the emergency room after eating a chicken breast and feeling pain in his throat. He says there was bones present in the chicken breast that he was eating. He says that the pain is substernal in nature. He reports pain with swallowing. He is not having any nausea or vomiting and he is able to control his secretions. Past Medical History Past Medical History (Chronic Problems): Chronic Problems (Last Reviewed 05/19/19 @ 09:48 by Marium Paul) Kidney stones (Chronic) Drug abuse (Chronic) Alcohol abuse (Chronic) Hepatitis C (Chronic) Asthma (Chronic) Medical History: Medical History (Last Reviewed 05/19/19 @ 09:48 by Marium Paul) Suicide attempt (Resolved) T14.91XA OD Seizures (Resolved) R56.9 d/t opiod withdraw 2016 Kidney stones (Chronic) N20.0 Drug abuse (Chronic) F19.10 Alcohol abuse (Chronic) F10.10 Hepatitis C (Chronic) B19.20 Asthma (Chronic) J45.909 Allergies ibuprofen Allergy (Verified 05/29/20 04:42) Hives orphenadrine citrate [From Norflex] Allergy (Verified 05/29/20 04:42) Hives Home Medications: Ambulatory Orders Medication Instructions Recorded Ondansetron [Zofran] 8 mg PO Q8H PRN PRN #15 tab 04/18/20 Pantoprazole Sodium 40 mg PO DAILY #10 tablet. 04/18/20 Surgical History: Surgical History (Last Reviewed 05/19/19 @ 09:48 by Marium Paul) H/O nephrolithotomy with removal of calculi Z98.890, Z87.442 History of hand surgery Z98.890 Rt hand fracture with screws Surgical History: tonsillectomy, - - Right hand surgery following football injury Psychiatric History: Depression Smoking Status: Current every day smoker Alcohol: None Drugs: None - *Family History Maternal Family History: Family History (Last Reviewed 05/19/19 @ 09:48 by Marium Paul) Unknown Alcoholism Suicide attempt Anxiety Arthritis Breast cancer Cancer Depression Myocardial infarction Kidney disease Seizures History Items: - - Denies known maternal medical history including cardiac history. Paternal Family History: Family History (Last Reviewed 05/19/19 @ 09:48 by Marium Paul) Unknown Alcoholism Suicide attempt Anxiety Arthritis Breast cancer Cancer Depression Myocardial infarction Kidney disease Seizures History Items: - - Denies known paternal medical history including cardiac history. Review of Systems Constitutional: Denies: Anorexia, Fever HEENT: Reports: Difficulty Swallowing, Dysphasia Respiratory: Denies: Cough Gastrointestinal: Denies: Abdominal Pain, Nausea, Vomiting Musculoskeletal: Denies: Arm Pain Endocrine: Denies: Heat/ Cold Intolerance VTE Information - Inpt Only VTE Present on Admission: No VTE Mechan Device Prophylaxis: SCD's Patient Problems: Active and Suspected Problems (Last Reviewed 05/19/19 @ 09:48 by Marium Paul) Esophageal foreign body (Acute) - Physical Exam Vitals/I&O's: Vital Signs Temp Pulse Resp BP Pulse Ox 98.0 F 74 15 108/62 98 05/29/20 04:39 05/29/20 07:20 05/29/20 07:20 05/29/20 07:20 05/29/20 07:20 Oxygen Delivery Method Room Air Weight: 184 lb 8.43 oz Body Mass Index (BMI) 24.3 General: Alert, Oriented x3 Neck: No JVD Lungs: Normal air movement Cardiovascular: Regular rate, Regular Rhythm Abdomen: Soft, Non Tender, Non-Distended Microbiology Past 72 Hours 05/29/20 06:21 Mucosa - Nose SARS-CoV-2 Antigen (Rapid) - Final Current Medications Sodium Chloride () 1,000 mls @ 150 mls/hr IV .Q6H40M [facility] Last Admin: 05/29/20 07:24 Dose: 150 mls/hr Documented by: Assessment/Plan All Active Problems (Last Reviewed 05/19/19 @ 09:48 by Marium Paul) Esophageal foreign body (Acute) Suicide attempt (Resolved) Seizures (Resolved) Antihistamines overdose (Resolved) Sinus tachycardia (Resolved) Ventricular ectopy (Resolved) 29-year-old male with dysphagia and difficulty swallowing 1. The patient reports that he is having difficulty swallowing with pain in the substernal esophagus. It is likely that the patient has an abrasion of the esophagus but I will perform an EGD to ensure there is no foreign body stuck. I will have the patient wait in the emergency room until I am free to perform an EGD. I discussed EGD with the patient in detail and he would like to proceed. 2. We discussed the current risks associated with COVID-19. While it is understood that there is a community spread of COVID-19, the risk of carlene COVID-19 while at [facility] ([facility]) is very low; however, the risk cannot be completely mitigated because of the community spread of the disease. We discussed in detail the risk of exposure to and/or potential harm posed by the COVID-19 virus with having a surgery/procedure at this time versus the risk of delaying the surgery/procedure. It is not possible to know either the risk of delaying the surgery or procedure or chance of getting an infection with perfect accuracy, but a joint decision was made to proceed at this time with the scheduled surgery/procedure as indicated on the consent form. Patient was notified that we will need to comply with any screening or testing [facility] wishes to perform or that surgery may be delayed for any positive results. Arnav Meza MD Pager: [facility] [address] [place] [address], [address] [place] [address] Office:
--- NOTE | 2020-05-29 09:05 | NURSING ---
930 TO FB REMOVAL IN SURGERY AT 1045 DR HUGO
[2020-05-29] MEDS: Lactated Ringers 1,000 ML 100 ML IV (09:54)
--- NOTE | 2020-05-29 10:45 | IMM_PTH ---
PATIENT: LIZZ PAL [place] [facility] [place][id number] AGE/SX: 29/M ROOM: RE05/29/[address]: Dr. Arnav Meza MD : 1990 BED: DIS: 05/29/2020 SPEC #: [id number] RECD: 05/29/20 13:26 STATUS: MAI REQ #: [id number] OTILIO: 05/29/20 10:[address]: Arnav Meza DEPT: IMMUNOHISTOCHEMISTRY RECD BY: Mirella Garcia ENTERED: 05/29/20 13:27 SP TYPE: IMMUNO OTHR DR: Ian Sanchez, MANAGER SWITCH-C Tissues: A - Stomach, NOS Procedures: H Pylori (initial) PHYSICIAN & INSTITUTION [place] [address] SPECIMEN INFORMATION: Tissue Source: A - Antral biopsy Clinical Info: Abdominal pain Specimen Number: [id number] CPT code: 26544 METHODOLOGY: Deparaffinized sections of prefer/formalin-fixed tissue or PAP/DQ stained slides are incubated with monoclonal/polyclonal antibodies/oligonucleotide probes. Localization is made via biotin free immunoperoxidase method. Appropriate controls are performed and reacted as expected. Results on target cell population are indicated in the following table: RESULTS: ANTIBODY / CLONE RESULT Block A H Pylori (polyclonal) negative These tests were developed and their performance characteristics determined by [facility]. They may not have been cleared or approved by the U.S. Food and Drug Administration. The FDA has determined that such clearance or approval is not necessary. INTERPRETATION: A. Antral biopsy: Negative for Helicobacter pylori organisms. SJ:tamika 05/30/20
--- NOTE | 2020-05-29 11:14 | OP.EGD_ITS ---
Patient Name: Kapil Alston Procedure Date: 05/29/2020 11:00 AM Date of : 1990 Age: 29 Procedure: Upper GI endoscopy Indications: Foreign body in the esophagus Providers: Arnav Meza MD Medicines: Monitored Anesthesia Care Patient Profile: This is a 29 year old male. Refer to note in patient chart for documentation of history and physical. Complications: No immediate complications. Estimated blood loss: Minimal. Procedure: Pre-Anesthesia Assessment: - Prior to the procedure, a History and Physical was performed, and patient medications and allergies were reviewed. The patient's tolerance of previous anesthesia was also reviewed. The risks and benefits of the procedure and the sedation options and risks were discussed with the patient. All questions were answered, and informed consent was obtained. Prior Anticoagulants: The patient has taken no previous anticoagulant or antiplatelet agents. After reviewing the risks and benefits, the patient was deemed in satisfactory condition to undergo the procedure. After obtaining informed consent, the endoscope was passed under direct vision. Throughout the procedure, the patient's blood pressure, pulse, and oxygen saturations were monitored continuously. The Endoscope was introduced through the mouth, and advanced to the second part of duodenum. The upper GI endoscopy was accomplished without difficulty. The patient tolerated the procedure well. Scope In: 11:06:45 AM Scope Out: 11:10:19 AM Total Procedure Duration Time 0 hours 3 minutes 34 seconds Findings: Biopsies were taken with a cold forceps in the gastric antrum for Helicobacter pylori testing. Esophagitis with no bleeding was found. Biopsies were taken with a cold forceps for histology. Long superficial laceration of esophagus Impression: - No specimens collected. Recommendation: - Discharge patient to home. - Soft diet today. - Continue present medications. - Await pathology results. Procedure Code(s): --- Professional --- 26233, Esophagogastroduodenoscopy, flexible, transoral; with biopsy, single or multiple Diagnosis Code(s): --- Professional --- T18.108A, Unspecified foreign body in esophagus causing other injury, initial encounter CPT copyright 2017 [employer]. All rights reserved. The codes documented in this report are preliminary and upon electric cutter operator review may be revised to meet current compliance requirements. Arnav Meza MD 05/29/2020 11:14:21 AM This report has been signed electronically. Number of Addenda: 0 Note Initiated On: 05/29/2020 11:00 AM
--- NOTE | 2020-05-29 11:14 | OP.CCLET_ITS ---
05/29/2020 Israel Foster Re : Upper GI endoscopy procedure for Kapil Alston Dear Daniel This procedure was performed on Friday, May 29, 2020. My impressions and recommendations are as follows: Impressions : - No specimens collected. Recommendations : - Discharge patient to home. - Soft diet today. - Continue present medications. - Await pathology results. My findings are described in the full procedure note, which is enclosed. If I can be of further assistance, please feel free to contact me at Doctor phone number(s): , Work: . Sincerely, Arnav Meza MD 05/29/2020 11:14:21 AM This report has been signed electronically.
== END 2020-05-29 12:15 | disposition home or self-care (01) ==
LOC: ED 07:38 → SDC 07:42 → AC 07:45
PROVIDERS: Emergency Provider Emergency Medicine; PCP Nurse Practitioner Family; Visit Provider Surgery
PROC: 0DJ08ZZ Inspection of Upper Intestinal Tract, Via Natural or Artificial Opening Endoscopic (ICD-10-PCS; CPT 43235; principal; 2020-05-29 10:40)
DX: T18.128A Food in esophagus causing other injury, initial encounter (principal); X58.XXXA Exposure to other specified factors, initial encounter; Y93.89 Activity, other specified; Y92.9 Unspecified place or not applicable; F17.200 Nicotine dependence, unspecified, uncomplicated; B18.2 Chronic viral hepatitis C; J45.909 Unspecified asthma, uncomplicated; F10.10 Alcohol abuse, uncomplicated; F19.10 Other psychoactive substance abuse, uncomplicated; Z79.899 Other long term (current) drug therapy; K20.90 Esophagitis, unspecified without bleeding
CPT/HCPCS: 43239; 70360; 71046; 87426; 88305; 88313; 88342; 99285; J7030; J7120; A4216; J1610

== ENCOUNTER 2021-01-26 08:55 | Emergency (ER) | payer MEDICAID, SELFPAY ==
[2020-05-29 09:43] VITALS: BMI 24.3
[2021-01-26 08:56] VITALS: BP 143/85; PULSE 80; RESP 16; TEMP 36.6; BMI 22.4
[2021-01-26 08:58] VITALS: BP 143/85; PULSE 80; RESP 16; TEMP 36.6
--- NOTE | 2021-01-26 09:49 | EDS_ITS ---
HPI History of Present Illness HPI Narrative: Patient presents with right elbow pain that began 3 days ago after an injury. Patient states his elbow accidentally hit an ax and cut his elbow. Patient did not seek treatment at that time. Patient states he cleaned and washed the wound. Patient states the area has been getting more painful. Patient noted some redness around the wound. Patient describes his pain as aching and throbbing. Patient states the pain is worse with any movement. Patient denies any paresthesias or weakness. Patient states his last tetanus was 5 years ago. Chief Complaint: Wound Check Informant: patient Occured/Mechanism Comment: Cut on right elbow Onset/Context/Timing Onset: Days (3) Context: Gradual Onset Timing: Continuous Quality of Pain: Aching and Throbbing Location: Right elbow Worsened by: Movement Relieved by: Nothing Associated Symptoms Associated Symptoms: Negative for Parasthesia, Weakness and Loss of Funtion Narrative Tetanus Immunization: <5 years [facility] Medical History (Updated 01/26/21 @ 10:[address] Constantino Arrington DO) Alcohol abuse Asthma Drug abuse Hepatitis C Kidney stones Seizures Suicide attempt Home Medications cephalexin 500 mg PO Q6 #40 capsule 01/26/21 [Rx Last Taken Unknown] Allergy/AdvReac Type Severity Reaction Status Date / Time ibuprofen Allergy Hives Verified 01/26/21 08:58 orphenadrine citrate Allergy Hives Verified 01/26/21 08:58 [From Norflex] Family History Unknown Alcoholism Anxiety Arthritis Breast cancer Cancer Depression Myocardial infarction Kidney disease Seizures Suicide attempt Surgical History H/O nephrolithotomy with removal of calculi History of hand surgery Social History Smoking Status: Current every day smoker tobacco type: cigarettes alcohol intake: former year quit: 2019 substance use type: former substance user Date of last use: 04/07/19, marijuana and methamphetamine what type of physical activity do you participate in: other ROS ROS ED Constitutional Constitutional ED: Denies chills or fever(s) Eyes Eyes: Denies blurry vision or change in vision ENT ENT ED: Denies rhinorrhea or sore throat Cardiovascular Cardiovascular: Denies chest pain or palpitations Respiratory/Chest Respiratory/Chest: Denies cough or dyspnea Gastrointestinal Gastrointestinal: Denies nausea or vomiting Genitourinary Genitourinary ED: Denies dysuria or hematuria Musculoskeletal Musculoskeletal: Reports neck pain; Denies back pain Integumentary Denies abscess or rash Neurologic Neurologic: Denies headache(s) or weakness Allergic/Immunologic Allergic/Immunologic ED: Denies mouth swelling or urticaria EXAM Physical Exam Const Vital Signs: 01/26/21 08:56 01/26/21 08:58 Temperature 97.8 F 97.8 F Temperature Source Temporal Temporal Pulse Rate 80 80 Respiratory Rate 16 16 Blood Pressure 143/85 H 143/85 H Blood Pressure Mean 104 104 Positive well nourished and well developed General Appearance ED: well developed HEENT Reports moist mucous membranes Neck full ROM and supple Extremity Extremity Narrative: There is a healing wound over the lateral aspect of the right elbow area. There is surrounding erythema. There is tenderness to palpation over this area. Range of motion of the right elbow is from approximately 15 degrees to 60 degrees of flexion. This is limited due to pain. There is no obvious deformity noted. There is no discharge or drainage. Radial pulses are equal bilaterally. Sensation was intact to light touch in all digits. Capillary refill was less than 2 seconds in all digits. Strength is 5/5 in the radial, median, and ulnar areas. Neuro oriented x3, CN's II-XII intact bilaterally, moves all extremities, no focal motor deficits and no sensory deficits noted Sensorium / Orientation: alert Psych mental status grossly normal MDM MDM MDM Narrative Medical decision making narrative: Patient was given a dose of Unasyn here. X- rays of the right elbow were obtained. There are 4 views. On my interpretation, there is no acute fracture. There is no dislocation. There is no soft tissue swelling. There is no foreign body noted. Radiologist also interpreted the x-rays and agrees. CBC and comprehensive metabolic profile were obtained and were essentially within normal limits. Patient is feeling better on reevaluation. Patient was given a prescription for Keflex. Patient was instructed to follow-up with his primary care physician in 5 to 7 days. Patient was instructed to return if worse in any way. Patient understood and was agreeable with the plan. All questions were answered. Lab Data Attestation: I reviewed the patient's lab results. Discharge Plan Triage Chief Complaint: Wound Check ED Provider: Constantino Arrington Dx/Rx/DC Orders Clinical Impression: Cellulitis of right elbow Instructions: ED Cellulitis, ED Wound Check (Infection) Prescriptions: New cephalexin [cephalexin] 500 MG capsule 500 mg PO Q6 Qty: 40 RF: 0 Primary Care Provider: Care Physician,No Primary Referrals: Toni Sanchez DO [STAFF PHYSICIAN] - 5-7 Days Care Physician,No Primary [Primary Care Provider] - Disposition Disposition: Home, Self Care
[2021-01-26 09:57] LABS: Absolute Lymphocyte Count 2.53 X10^3/uL (0.83-4.51); Absolute Neutrophil Count 5.1 X10^3/uL (2.0-7.7); Basophil# 0.03 X10^3/uL; Basophil% 0.4 % (0-1); Eosinophil# 0.13 X10^3/uL; Eosinophils% 1.6 % (0-5); Hemoglobin 14.9 g/dL (13.0-16.5); Lymphocyte # 2.53 X10^3/ul (0.83-4.51); Lymphocyte % 30.8 % (19-41); Mean Corp Hgb Conc 33.9 g/dL (32-36); Mean Corpuscular Hgb 30.3 pg (27.0-32.0); Mean Corpuscular Volume 89.6 fL (80-94); Mean Platelet Vol. 9.9 fl (6.2-12.0); Monocyte% 4.9 % (0-10); NRBC Flagged by Analyzer 0 % (0-5); Neutrophil # 5.12 X10^3/uL (2.7-7.7); Neutrophil % 62.2 % (47-70); Platelet Count 173 K/mm3 (150-450); RBC Distribution Width CV 11.8 % (11.6-14.6); RBC Distribution Width SD 38.5 fl (35.1-43.9); Red Blood Count 4.91 M/mm3 (4.6-6.2); White Blood Count 8.2 K/mm3 (4.4-11.0)
--- NOTE | 2021-01-26 10:00 | RAD_ITS ---
STUDY: X-RAY - RIGHT ELBOW REASON FOR EXAM: Male, 30 years old. Injury/Pain TECHNIQUE: 4 view(s) of the elbow. COMPARISON: None. FINDINGS: Normal visualized humerus, radius and ulna. Normal radiocapitellar and ulnotrochlear articulations. The soft tissue structures are unremarkable. RAD/Elbow min 3 Views IMPRESSION: Normal x-ray examination of the elbow. Electronically Signed: Mekhi Good MD at 10:11 EDT Tel , Service support ,
[2021-01-26 10:12] LABS: ALB/GLOB Ratio 1.2 RATIO (0.9-2.4); AST(SGOT) 28 U/L (15-37); Alanine Aminotransfer ALT/SGPT 66 U/L (16-61); Albumin, Serum 3.8 g/dL (3.2-5.0); Alkaline Phosphatase 75 U/L (45-117); Anion Gap 6 (5-15); BUN 9 mg/dL (7-18); BUN/Creat Ratio 9.2 RATIO (10-20); Calcium,Total 8.7 mg/dL (8.5-10.1); Chloride 104 mmol/L (98-107); Creatinine, Serum 0.98 mg/dL (0.70-1.30); EST Glomerular Filtration Rate 94 mL/min (>60); Est Glom Filt Rate - Afr Amer 114 mL/min (>60); Estimated Creatinine Clearance 119.12 ml/min; Globulin 3.3 g/dL (2.2-4.2); Glucose 115 mg/dL (74-106); Protein, Total 7.1 g/dL (6.4-8.2); Sodium Level 139 mmol/L (136-145)
== END 2021-01-26 11:05 | disposition home or self-care (01) ==
PROVIDERS: Emergency Provider Emergency Medicine
DX: L03.113 Cellulitis of right upper limb (principal); F17.210 Nicotine dependence, cigarettes, uncomplicated
CPT/HCPCS: 73080; 80053; 85025; 96365; 99283; A4216; J0295

== ENCOUNTER 2021-04-12 15:53 | Emergency (ER) | payer MEDICAID, SELFPAY ==
--- NOTE | 2021-04-12 15:15 | RAD_ITS ---
STUDY: X-RAY - LEFT HAND REASON FOR EXAM: Male, 30 years old. CELLULITIS TECHNIQUE: 3 view(s) of the hand. COMPARISON: None. FINDINGS: Normal radiocarpal articulation. Degenerative changes of the distal radioulnar joint. Normal visualized carpal bones. Normal carpal articulations Normal carpometacarpal articulation of the thumb. Normal second through fifth carpometacarpal joints. Normal metacarpi. Normal metacarpophalangeal joint of the thumb. Normal interphalangeal joint of the thumb. Normal proximal and distal phalanges of the thumb. Normal metacarpophalangeal joints of the second through fifth fingers. Normal proximal and distal interphalangeal joints of the second through fifth fingers. Normal phalanges of the second through fifth fingers. Diffuse soft tissue swelling particularly involving the third digit. RAD/Hand Min 3 Views IMPRESSION: Soft tissue swelling without demonstrated fracture or destructive bony process. Electronically Signed: Jose Vogt MD ([place]) at 18:00 EDT , Service support ,
[2021-04-12 15:54] VITALS: BP 107/75; PULSE 101; RESP 18; TEMP 36.1; O2SAT 99; BMI 22.4
[2021-04-12 15:56] VITALS: BP 107/75; PULSE 101; RESP 18; TEMP 36.1; O2SAT 99
--- NOTE | 2021-04-12 16:29 | EX.ED.DYSGE1 ---
HPI History of Present Illness Chief Complaint: Cellulitis Narrative Narrative: Patient presenting with swelling of the left hand. He states he had a recent laceration which was healing but now he started to have swelling of the third digit on the left hand. Patient states there is been no drainage. He currently has no systemic signs or symptoms. He states that 2 days ago he lost his sense of smell. The day before this he had subjective fevers. He does not have a cough or shortness of breath. He denies chest pain. [facility] Medical History Alcohol abuse Asthma Drug abuse Hepatitis C Kidney stones Seizures Suicide attempt Home Medications cephalexin 500 mg PO Q6 #40 capsule 01/26/21 [Rx Last Taken Unknown] clindamycin HCl 450 mg PO TID 10 Days #90 cap 04/12/21 [Rx Last Taken Unknown] Allergy/AdvReac Type Severity Reaction Status Date / Time ibuprofen Allergy Hives Verified 01/26/21 08:58 orphenadrine citrate Allergy Hives Verified 01/26/21 08:58 [From Norflex] Family History Unknown Alcoholism Anxiety Arthritis Breast cancer Cancer Depression Myocardial infarction Kidney disease Seizures Suicide attempt Surgical History H/O nephrolithotomy with removal of calculi History of hand surgery Social History Smoking Status: Current every day smoker tobacco type: cigarettes alcohol intake: former year quit: 2019 substance use type: former substance user Date of last use: 04/07/19, marijuana and methamphetamine what type of physical activity do you participate in: other ROS ROS ED Constitutional Constitutional ED: Reports chills and subjective ENT ENT ED: Denies rhinorrhea or sore throat Cardiovascular Cardiovascular: Denies chest pain or palpitations Respiratory/Chest Respiratory/Chest: Denies cough or dyspnea Gastrointestinal Gastrointestinal: Denies abdominal pain, nausea or vomiting Genitourinary Genitourinary ED: Denies dysuria or hematuria Musculoskeletal Musculoskeletal: Reports other Details: Right hand pain Integumentary Reports other Details: Erythema and warmth of right third digit on right hand peer Neurologic Neurologic: Denies headache(s) or paresthesias EXAM Physical Exam Const Vital Signs: 04/12/21 15:54 04/12/21 15:56 04/12/21 18:19 Temperature 97 F L 97 F L Temperature Source Temporal Temporal Pulse Rate 101 H 101 H Respiratory Rate 18 18 16 Blood Pressure 107/75 107/75 Blood Pressure Mean 85 85 Pulse Ox 99 99 Positive well nourished General Appearance ED: NAD HEENT Reports moist mucous membranes Negative for trauma Eyes PERRL and EOMs intact bilaterally Resp normal respiratory effort and clear to auscultation bilaterally Cardio regular rate and regular rhythm Extremity Extremity Narrative: Right hand third digit has a superficial laceration. There is some swelling circumferentially of the base of the right third digit. There is also some swelling over the dorsum of the right hand. There is correlating mild erythema to these areas and warmth. There is no drainage coming from the laceration site. No pain on the volar surface of the right third digit. Right hand neurovascular intact with brisk cap refill to all 5 fingers. Neuro oriented x3 Sensorium / Orientation: alert Psych mental status grossly normal Skin Skin Narrative: As described above MDM MDM MDM Narrative Medical decision making narrative: Obtain imaging of the left hand which on my interpretation shows no acute fracture subluxation. Patient does have soft tissue swelling with predominantly of the left third digit. There is no subcutaneous emphysema. Patient does have a small superficial laceration on the dorsal surface of the left third digit. There is no drainage from this. There is no fluctuance in the finger. We will start the patient on clindamycin and he is to monitor this for worsening. He is given return precautions if it is not improving. Impression: 1. Cellulitis 2. Superficial laceration Radiography Diagnostic Testing: Radiology Impression Hand X-Ray 04/12/21 15:15 IMPRESSION: Soft tissue swelling without demonstrated fracture or destructive bony process. Electronically Signed: Jose Vogt MD ([facility]) at 18:00 EDT , Service support , Discharge Plan Triage Chief Complaint: Cellulitis ED Provider: Jos Hendricks Dx/Rx/DC Orders Instructions: ED Cellulitis Prescriptions: New clindamycin HCl 150 mg capsule 450 mg PO TID 10 Days Qty: 90 RF: 0 No Action cephalexin [cephalexin] 500 MG capsule 500 mg PO Q6 Qty: 40 RF: 0 Primary Care Provider: Care Physician,No Primary Referrals: Care Physician,No Primary [Primary Care Provider] - Disposition Disposition: Home, Self Care Discharge Date/Time: 04/12/21 19:33
[2021-04-12] MEDS: Clindamycin HCl 150 MG Capsule 450 MG PO (16:36)
[2021-04-12 18:19] VITALS: RESP 16
== END 2021-04-12 19:33 | disposition home or self-care (01) ==
PROVIDERS: Emergency Provider Student in an Organized Health Care Education/Training Program
DX: L03.114 Cellulitis of left upper limb (principal); F17.210 Nicotine dependence, cigarettes, uncomplicated
CPT/HCPCS: 73130; 87426; 99282

== ENCOUNTER 2021-08-16 18:58 | Emergency (ER) | payer MEDICAID, SELFPAY ==
--- NOTE | 2021-08-16 20:45 | RAD_ITS ---
STUDY: X-RAY - LEFT HAND REASON FOR EXAM: Male, 30 years old. Injury TECHNIQUE: 3 view(s) of the hand. COMPARISON: 3 views of the left hand 04/12/2021 FINDINGS: Normal radiocarpal articulation. Normal distal radioulnar joint. Normal visualized carpal bones. Normal carpal articulations Normal carpometacarpal articulation of the thumb. Normal second through fifth carpometacarpal joints. Normal metacarpi. Normal metacarpophalangeal joint of the thumb. Normal interphalangeal joint of the thumb. Normal proximal and distal phalanges of the thumb. Normal metacarpophalangeal joints of the second through fifth fingers. Normal proximal and distal interphalangeal joints of the second through fifth fingers. Normal phalanges of the second through fifth fingers. There may be minor soft tissue swelling posterior to the distal metacarpals and in the proximal third finger, but this is less prominent than on previous study. There is no demonstrated osseous destructive lesion or acute fracture. RAD/Hand Min 3 Views IMPRESSION: Minor dorsal soft tissue swelling in the distal hand and proximal third finger, improved since 04/12/2021. No acute osseous abnormality of the left hand. Electronically Signed: Paolo Jimenez MD at 21:12 EST ,
--- NOTE | 2021-08-16 21:32 | EDS_ITS ---
DATE OF SERVICE 08/16/21 CHIEF COMPLAINT: Left thumb laceration. HISTORY OF PRESENT ILLNESS: This patient is a 30-year-old male who presents with laceration to the left thumb that occurred tonight. The patient states that he reached for something in the back seat of his car and accidentally cut his left thumb on a knife that was in the back seat. The patient describes the pain as burning and stabbing. He states that nothing makes it better and nothing makes it worse. He does admit to some tingling in his left thumb. The patient denies any weakness. He states that his last tetanus was within 5 years. PAST MEDICAL HISTORY: Anxiety and depression. PAST SURGICAL HISTORY: Tonsillectomy and open reduction and internal fixation of right hand fracture CURRENT MEDICATIONS: None. ALLERGIES: Ibuprofen and Norflex. SOCIAL HISTORY: The patient denies alcohol use. He smokes 1/2 pack of cigarettes per day. 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 REVIEW OF SYSTEMS: GENERAL: The patient denies any fevers or chills. EYES: The patient denies blurry vision or diplopia. ENT: The patient denies any sore throat or rhinorrhea. CARDIOVASCULAR: Denies chest pain or palpitations. RESPIRATORY: The patient denies any shortness of breath or cough. GI: The patient admits to mild nausea but denies vomiting. : The patient denies dysuria or hematuria. MUSCULOSKELETAL: The patient denies any neck pain or back pain. SKIN: The patient denies any rash or abscess. NEUROLOGIC: The patient denies any headaches or weakness. ALLERGIES: The patient denies any urticaria or swelling. PHYSICAL EXAMINATION: GENERAL: The patient is in no acute distress. VITAL SIGNS: Stable, afebrile. SKIN: Warm and dry. There is a 2 cm full-thickness linear laceration over the radial aspect of the proximal phalanx of the left thumb. There is mild gapping of the wound margins. There are no foreign bodies noted. There are no tendon lacerations noted. Strength is 5/5 in flexion and extension of the IP and MP joints of the left thumb. Capillary refill was less than 2 seconds in all digits. Sensation is intact to light touch in all digits. DIAGNOSTIC DATA: X-rays of the left hand were obtained. There are 3 views. On my interpretation, there is no acute fracture. There is no foreign body noted. There is no soft tissue swelling. The radiologist also interpreted the x-rays and agrees. EMERGENCY DEPARTMENT COURSE AND MEDICAL DECISION MAKING: The left thumb was cleaned and irrigated with copious amounts of normal saline. The left thumb was anesthetized with 1% lidocaine via digital block. The wound was closed with four simple interrupted 4-0 Nylon sutures under sterile technique. Bacitracin dressing was applied. The patient tolerated the procedure well. IMPRESSION: Left thumb laceration. DISPOSITION/PLAN: The patient was discharged. Condition is stable.
== END 2021-08-16 21:45 | disposition home or self-care (01) ==
LOC: ED 08-19 08:40
PROVIDERS: Emergency Provider Emergency Medicine; Visit Provider Emergency Medicine
DX: S61.012A Laceration without foreign body of left thumb without damage to nail, initial encounter (principal); F17.200 Nicotine dependence, unspecified, uncomplicated; W26.0XXA Contact with knife, initial encounter
CPT/HCPCS: 12001; 36415; 73130; 96374; 99284; 99285